=== PATIENT | female | born 1990 | race Caucasian/White ===

== ENCOUNTER 2020-06-29 21:05 | Emergency (ER) | payer OTHER, SELFPAY ==
--- NOTE | ~2020-06-29 | US_ITS ---
EXAMINATION: ULTRASOUND FIRST TRIMESTER CLINICAL INFORMATION: Nausea and vomiting. .. COMPARISON: None. TECHNIQUE: Transabdominal imaging of the pelvis was performed. FINDINGS: A normal gravid uterus is identified. A single living intrauterine gestation is identified with a crown-rump length of 26 mm corresponding to 9 weeks 3 days. This is concordant with the age by dates of 9 weeks 1 days for an RUTH of 01/31/2021. A normal heart rate of 181 beats per minute is identified. Both ovaries are of normal size and echogenicity. The right measures 1.9 x 1.9 x 1.8 cm. The left measures 2.3 x 3.2 x 1.5 cm. There is no pelvic free fluid. US/US OB <= 14 wk fetus add gest IMPRESSION: Normal single living intrauterine gestation with an RUTH of 01/31/2021.
[2020-06-29 21:15] VITALS: BP 124/69; PULSE 122; RESP 18; TEMP 37.2; O2SAT 98; BMI 27.4
[2020-06-29 22:25] VITALS: BP 121/67; PULSE 122; RESP 18; TEMP 37.2; O2SAT 96
[2020-06-29 22:39] LABS: MANUAL DIFF FLAG NO
[2020-06-29 22:41] LABS: Basophils Percent Auto 0.3 % (0-2); Eosinophils Percent Auto 0.1 % (0-4); Hematocrit 39.8 % (37-47); Hemoglobin 13.9 g/dl (12.0-16.0); Imm Gran Abs Auto 0.06 X10*3/uL (0.00-0.03); Imm Gran Pct Auto 0.4 % (0.0-0.4); Lymphocytes Absolute Auto 1.1 X10*3/uL (1.2-4.9); Lymphocytes Percent Auto 7.6 % (20-40); Mean Corpuscular HGB Conc 34.9 g/dl (31.0-35.0); Mean Corpuscular Hemoglobin 30.6 pg (27.0-33.0); Mean Corpuscular Volume 87.7 fL (80-98); Mean Platelet Volume 9.8 fL (9.4-12.3); Monocytes Absolute Auto 0.4 X10*3/uL (0.1-1.2); Neutrophils Absolute Auto 12.6 X10*3/uL (2.0-8.3); Neutrophils Percent Auto 88.6 % (45-73); Platelet Count 388 X10*3/uL (160-400); Red Blood Count 4.54 X10*6/uL (4.20-5.50); Red Cell Distribution Width 11.8 % (11.0-16.0); White Blood Count 14.2 X10*3/uL (4.8-10.8)
[2020-06-29 22:45] LABS: Glucose Urine UA NEG (NEG); Leukocyte Esterase Urine TRACE (NEG); Nitrite Urine NEG (NEG); PH 6.5 (5.0-8.0); Specific Gravity - Urine 1.025 (1.005-1.025); UACC Culture Trigger YES; Urine Blood 2+ (NEG); Urine Ketones >=80 MG/DL (NEG); Urine Protein TRACE MG/DL (NEG-TRACE)
--- NOTE | 2020-06-29 22:46 | ED_ITS ---
HPI - Nausea/Vomiting/Diarrhea General Chief complaint: Nausea/Vomiting/Diarrhea Stated complaint: Vomiting/9 wks Time Seen by Provider: 06/29/20 22:16 Source: patient Mode of arrival: ambulatory History of Present Illness HPI Narrative: This is a 30-year-old female , LMP 12 01/2020 with an EGA: 9 weeks, 1 day who presents with onset of nausea and vomiting since 10:00 a.m. this morning without associated fevers, chills, cough, shortness of breath, chest pain/palpitations, abdominal pain/cramping, diarrhea, urinary pain/bu rning/frequency, vaginal bleeding or discharge. Patient states that she tried multiple different fluids to include Pedialyte without success in keeping anything down. She has not yet had an OB appointment and states that her 1st was uncomplicated, other than having nausea/vomiting during the 1st trimester. Related Data Previous Rx's Medication Instructions Recorded nitrofurantoin monohyd/m-cryst 100 mg PO Q12H 7 Days #14 cap 06/30/20 [Macrobid] pyridoxine (vitamin B6) 25 mg PO TID PRN #14 tab 06/30/20 Allergies Allergy/AdvReac Type Severity Reaction Status Date / Time No Known Drug Allergies Allergy Unknown Unknown Verified 06/29/20 21:27 Review of Systems Review of Systems: Pertinent positives and negatives as stated in HPI 10 point review systems is otherwise negative. PMFSH Past Medical History Source: nursing notes reviewed Medical History No known health problems Social History Social History Advance Directives: No Physical Exam Vital Signs: Vital Signs: Last Vital Signs Temp 99.0 F 06/29/20 22:25 Pulse 109 H 06/30/20 00:00 Resp 16 06/30/20 00:00 BP 113/62 06/30/20 00:00 Pulse Ox 99 06/30/20 00:00 Body Mass Index 27.4 VITAL SIGNS: Reviewed. GENERAL: Well developed, well nourished, in no acute distress. HEAD: Normocephalic/atraumatic, NOSE: Nares patent bilateral OROPHARYNX: no oral lesions noted, posterior pharynx clear NECK: Supple, no adenopathy LUNGS: Normal breath sounds. No adventitious sounds or accessory muscle use. SpO2<> CARDIOVASCULAR: Regular rate and rhythm without noted murmurs, no JVD or lower extremity edema. ABDOMEN: Soft, non-tender, non-distended with bowel sounds. NEUROLOGIC: Alert and oriented x 4. Course Course Course Narrative: This is a 30-year-old female with history and clinical presentation consistent with nauseous and vomiting associated with . Will rule out ectopic, no vaginal bleeding/cramping therefore doubt SAB. Christin ent will receive IV fluids, labs, UA, Ob ultrasound. Review of all investigations patient has a mild leukocytosis with evidence suggesting UTI. She was informed of all results and findings and has had complete resolution of her nausea and vomiting and is tolerating oral intake. She will receive initial antibiotic treatment here and then be discharged with remaining course. MDM - Nausea/Vomiting/Diarrhea Lab Data Result diagrams: 06/29/20 22:35 06/29/20 22:35 Labs: Lab Results 06/29/20 06/29/20 06/29/20 Range/Units 22:35 22:35 22:35 WBC 14.2 H (4.8-10.8) X10*3/uL RBC 4.54 (4.20-5.50) X10*6/uL Hgb 13.9 (12.0-16.0) g/dl Hct 39.8 (37-47) % MCV 87.7 (80-98) fL MCH 30.6 (27.0-33.0) pg MCHC 34.9 (31.0-35.0) g/dl RDW 11.8 (11.0-16.0) % Plt Count 388 (160-400) X10*3/uL MPV 9.8 (9.4-12.3) fL Immature Gran % (Auto) 0.4 (0.0-0.4) % Neut % (Auto) 88.6 H (45-73) % Lymph % (Auto) 7.6 L (20-40) % [place] % (Auto) 3.0 (2-11) % Eos % (Auto) 0.1 (0-4) % Baso % (Auto) 0.3 (0-2) % Lymph # (Auto) 1.1 L (1.2-4.9) X10*3/uL [place] # (Auto) 0.4 (0.1-1.2) X10*3/uL Eos # (Auto) 0.0 (0.0-0.4) X10*3/uL Baso # (Auto) 0.0 (0.0-0.2) X10*3/uL Abs Immat Gran (auto) 0.06 H (0.00-0.03) X10*3/uL Absolute Neuts (auto) 12.6 H (2.0-8.3) X10*3/uL Absolute Nucleated RBC 0.000 (0.0-0.012) X10*3/uL Nucleated RBC % (auto) 0.0 (0.0-0.2) /100WBC Sodium 140 (135-145) mmol/L Potassium 3.6 (3.3-5.1) mmol/L Chloride 106 (96-108) mmol/L Carbon Dioxide 20 L (22-29) mmol/L Anion Gap 18 (12-20) BUN 15 (9-16) mg/dL Creatinine 0.69 (0.5-1.4) mg/dL Estim Creat Clear Calc 109.7 Estimated GFR > 60 Random Glucose 106 (60-115) mg/dL Calcium 9.9 (8.4-10.2) mg/dL Total Bilirubin 0.5 (0.0-1.0) mg/dL AST 16 (5-31) U/L ALT 36 H (0-31) U/L Alkaline Phosphatase 86 (39-117) U/L Total Protein 7.7 (6.5-8.0) g/dL Albumin 4.4 (3.5-5.0) g/dL Beta HCG, Quant 817791 mIU/mL Urine Color DARK YELLOW Urine Appearance CLEAR Urine pH 6.5 (5.0-8.0) Ur Specific [place] 1.025 (1.005-1.025) Urine Protein TRACE (NEG-TRACE) MG/DL Urine Glucose (UA) NEG (NEG) MG/DL Urine Ketones >=80 (NEG) MG/DL Urine Blood 2+ H (NEG) Urine Nitrite NEG (NEG) Ur Leukocyte Esterase TRACE H (NEG) Urine RBC 1-4 (0) /HPF Urine WBC 10-14 H (0-4) /HPF Ur Squamous Epith Cells 2+ /LPF Urine Bacteria TRACE /LPF Urine Mucus 1+ /LPF Urine Test POSITIVE H (NEGATIVE) Discharge Plan Discharge Clinical Impression: UTI (urinary tract infection) Qualifiers: Urinary tract infection type: site unspecified Hematuria presence: without hematuria Qualified Code(s): N39.0 - Urinary tract infection, site not specified Patient Disposition: Home, Self-Care Instructions: Urinary Tract Infection in (ED) Prescriptions: New nitrofurantoin monohyd/m-cryst [Macrobid] 100 mg capsule 100 mg PO Q12H 7 Days Qty: 14 RF: 0 pyridoxine (vitamin B6) 25 mg tablet 25 mg PO TID PRN (Reason: nausea and vomiting) Qty: 14 RF: 0
[2020-06-29 22:49] LABS: Appearance Urine CLEAR; Color Urine DARK YELLOW
[2020-06-29 23:00] LABS: Squamous Epithelial Cell Urine 2+ /LPF
[2020-06-29 23:01] LABS: Bacteria Urine TRACE /LPF; Mucus Urine 1+ /LPF; UPreg QC Valid YES; Urine Pregnancy POSITIVE (NEGATIVE)
[2020-06-29 23:07] LABS: Alanine Aminotransferase 36 U/L (0-31); Albumin Level 4.4 g/dL (3.5-5.0); Alkaline Phosphatase 86 U/L (39-117); Anion Gap 18 (12-20); Aspartate Amino Transferase 16 U/L (5-31); Bilirubin Total 0.5 mg/dL (0.0-1.0); Blood Urea Nitrogen 15 mg/dL (9-16); Calcium 9.9 mg/dL (8.4-10.2); Carbon Dioxide 20 mmol/L (22-29); Chloride 106 mmol/L (96-108); Creatinine Clr Calc Pharmacy 109.7; Estimated Glomerular Filt Rate > 60; Glucose Random 106 mg/dL (60-115); Potassium 3.6 mmol/L (3.3-5.1); Sodium 140 mmol/L (135-145); Total Protein 7.7 g/dL (6.5-8.0)
--- NOTE | 2020-06-29 23:46 | PC.NURSE ---
PATIENT AWAY FOR ULTRASOUND
[2020-06-29] MEDS: 0.9 % Sodium Chloride 1,000 ML 999 ML IV (23:58)
[2020-06-29] MEDS: ondansetron HCL 4 MG/2 ML VIAL IVPUSH (23:58)
[2020-06-30] VITALS: BP 113/62; PULSE 109; RESP 16; O2SAT 99
[2020-06-30 02:00] VITALS: BP 114/60; PULSE 99; RESP 18; O2SAT 99
[2020-06-30] MEDS: Nitrofurantoin Monohyd/M-Cryst 100 MG CAPSULE PO (02:14)
== END 2020-06-30 02:19 | disposition home or self-care (01) ==
PROVIDERS: Emergency Provider Student in an Organized Health Care Education/Training Program
DX: O23.41 Unspecified infection of urinary tract in pregnancy, first trimester (principal); R11.2 Nausea with vomiting, unspecified; Z3A.09 9 weeks gestation of pregnancy; Z79.899 Other long term (current) drug therapy
CPT/HCPCS: 36415; 76802; 80053; 81001; 81003; 81025; 84702; 85025; 87086; 96361; 96374; 99284; J2405

== ENCOUNTER 2020-07-03 17:08 | Emergency (ER) | payer OTHER, SELFPAY ==
[2020-07-03 17:30] VITALS: BP 108/72; PULSE 127; RESP 18; TEMP 36.8; O2SAT 98; BMI 28.3
--- NOTE | 2020-07-03 21:48 | ED_ITS ---
HPI - Nausea/Vomiting/Diarrhea General Chief complaint: Nausea/Vomiting/Diarrhea Stated complaint: Vomiting/9 weeks preg Source: patient Mode of arrival: ambulatory Limitations: no limitations History of Present Illness HPI Narrative: 30-year-old female 9 weeks presents with nausea and vomiting. Patient was seen on 06/30/2020 for similar circumstances and was diagnosed with a urinary tract infection. She has not taken any of her antibiotics because she stated that the nausea and vomiting has not subsided. She does not describe any abdominal pain, cramping, vaginal discharge or bleeding, chest pain or pressure, palpitations, shortness of breath, abdominal distention, or edema. MD elicited complaint: nausea and vomiting Onset (ago): week(s) Description of vomiting: watery and bilious Associated nausea: Yes Associated abdominal pain: No Exacerbating factors: eating Associated symptoms: denies other symptoms Related Data Previous Rx's Medication Instructions Recorded nitrofurantoin monohyd/m-cryst 100 mg PO Q12H 7 Days #14 cap 06/30/20 [Macrobid] pyridoxine (vitamin B6) 25 mg PO TID PRN #14 tab 06/30/20 ondansetron HCl [Zofran] 4 mg PO Q8H PRN #30 tab 07/03/20 Allergies Allergy/AdvReac Type Severity Reaction Status Date / Time No Known Drug Allergies Allergy Unknown Unknown Verified 06/29/20 21:27 Review of Systems Review of Systems: Constitutional: No Fever, No Chills ENT/Mouth: No Ear Pain, No Hoarseness, No sore throat Eyes: No Eye Pain, No Swelling, No Redness, No Foreign Body Cardiovascular: No Chest Pain, No SOB Respiratory: No Cough, No Dyspnea Gastrointestinal: Positive Nausea, positive Vomiting, No Diarrhea, No abdominal Pain Genitourinary: Positive , Positive Dysuria, No Hematuria Musculoskeletal: No joint pain, No Myalgias, No Joint Swelling Skin: No Skin lacerations, No rash Neuro: No Weakness, No Numbness, No Paresthesias, No Loss of Consciousness, No Dizziness, No Headache Psych: No Anxiety/Panic, No Depression Heme/Lymph: no easy bruising, no Lymphadenopathy Endocrine: No Polyuria, No Polydipsia Yes all other systems are reviewed and are negative Gastrointestinal: Gastrointestinal: Reports nausea PMFSH Past Medical History Attestation statement: The following information was validated with the patient. Source: old records reviewed Medical History No known health problems Social History Social History Alcohol intake: never Smoking Status: Never smoker Use of substances other than those prescribed or required for medical reasons: No Advance Directives: No Advance Directives Information Provided: Yes Physical Exam Vital Signs: Vital Signs: Last Vital Signs Temp 99.6 F 07/03/20 21:54 Pulse 112 H 07/03/20 21:54 Resp 16 07/03/20 21:54 BP 134/84 07/03/20 21:54 Pulse Ox 99 07/03/20 21:54 Body Mass Index 28.3 Appearance: Alert. Oriented X3. Mild distress. Eyes: Pupils equal, round and reactive to light. EOMI ENT: Pharynx normal. Cranial nerves 2-12 intact Neck: Normal inspection. Neck supple. CVS: Tachycardic heart rate and rhythm. Pulses normal. Respiratory: No respiratory distress. Breath sounds normal. Abdomen: Soft and nontender. No palpable fundus Skin: Skin warm and dry. Normal skin color. Normal skin turgor. Extremities: No lower extremity edema. Neuro: No motor deficit. No sensory deficit. Course Course Course Narrative: 30-year-old female approximately 9 weeks presents with intractable nausea, vomiting, and a urinary tract infection. She was given antibiotics on 06/30/2020 however she has not started taking them because of nausea and vomiting. Patient is tachycardic, given the history of untreated UTI we will order lactic acid, cultures, repeat urinalysis, CBC and Chem 7. We will resuscitate with 2 L of fluid and give ceftriaxone IV. White count 16.5 which is consistent with UTI and , no other organ dysfunction noted. Lactic acid 1.4 no sepsis this time. Patient strongly advised to take her antibiotics as directed, education provided that there is high risk of demise with untreated UTI. Will give script for Zofran. Patient verbalized understanding of and agrees plan of care discharge home. MDM - Nausea/Vomiting/Diarrhea MDM Narrative Medical decision making narrative: Hyperemesis gravidarum, UTI Differential Diagnosis Differential diagnosis: Likely dehydration Medical Records Attestation: I reviewed the patient's medical records. Lab Data Attestation: I reviewed the patient's lab results. Result diagrams: 07/03/20 21:52 07/03/20 21:52 Labs: Lab Results 07/03/20 07/03/20 07/03/20 Range/Units 21:52 21:52 22:28 WBC 16.5 H (4.8-10.8) X10*3/uL RBC 4.86 (4.20-5.50) X10*6/uL Hgb 14.4 (12.0-16.0) g/dl Hct 42.3 (37-47) % MCV 87.0 (80-98) fL MCH 29.6 (27.0-33.0) pg MCHC 34.0 (31.0-35.0) g/dl RDW 11.8 (11.0-16.0) % Plt Count 403 H (160-400) X10*3/uL MPV 10.1 (9.4-12.3) fL Immature Gran % (Auto) 0.4 (0.0-0.4) % Neut % (Auto) 78.7 H (45-73) % Lymph % (Auto) 14.2 L (20-40) % [place] % (Auto) 5.7 (2-11) % Eos % (Auto) 0.7 (0-4) % Baso % (Auto) 0.3 (0-2) % Lymph # (Auto) 2.3 (1.2-4.9) X10*3/uL [place] # (Auto) 0.9 (0.1-1.2) X10*3/uL Eos # (Auto) 0.1 (0.0-0.4) X10*3/uL Baso # (Auto) 0.1 (0.0-0.2) X10*3/uL Abs Immat Gran (auto) 0.07 H (0.00-0.03) X10*3/uL Absolute Neuts (auto) 13.0 H (2.0-8.3) X10*3/uL Absolute Nucleated RBC 0.000 (0.0-0.012) X10*3/uL Nucleated RBC % (auto) 0.0 (0.0-0.2) /100WBC Sodium 138 (135-145) mmol/L Potassium 4.0 (3.3-5.1) mmol/L Chloride 104 (96-108) mmol/L Carbon Dioxide 18 L (22-29) mmol/L Anion Gap 20 (12-20) BUN 15 (9-16) mg/dL Creatinine 0.65 (0.5-1.4) mg/dL Estim Creat Clear Calc 113.6 Estimated GFR > 60 Random Glucose 87 (60-115) mg/dL Lactic Acid 1.4 (0.5-2.0) mmol/L Calcium 9.8 (8.4-10.2) mg/dL Beta HCG, Quant 832015 mIU/mL Urine Color Urine Appearance Urine pH (5.0-8.0) Ur Specific [place] (1.005-1.025) Urine Protein (NEG-TRACE) MG/DL Urine Glucose (UA) (NEG) MG/DL Urine Ketones (NEG) MG/DL Urine Blood (NEG) Urine Nitrite (NEG) Ur Leukocyte Esterase (NEG) Urine RBC (0) /HPF Urine WBC (0-4) /HPF Ur Squamous Epith Cells /LPF Urine Bacteria /LPF Urine Mucus /LPF 07/03/20 Range/Units 23:03 WBC (4.8-10.8) X10*3/uL RBC (4.20-5.50) X10*6/uL Hgb (12.0-16.0) g/dl Hct (37-47) % MCV (80-98) fL MCH (27.0-33.0) pg MCHC (31.0-35.0) g/dl RDW (11.0-16.0) % Plt Count (160-400) X10*3/uL MPV (9.4-12.3) fL Immature Gran % (Auto) (0.0-0.4) % Neut % (Auto) (45-73) % Lymph % (Auto) (20-40) % [place] % (Auto) (2-11) % Eos % (Auto) (0-4) % Baso % (Auto) (0-2) % Lymph # (Auto) (1.2-4.9) X10*3/uL [place] # (Auto) (0.1-1.2) X10*3/uL Eos # (Auto) (0.0-0.4) X10*3/uL Baso # (Auto) (0.0-0.2) X10*3/uL Abs Immat Gran (auto) (0.00-0.03) X10*3/uL Absolute Neuts (auto) (2.0-8.3) X10*3/uL Absolute Nucleated RBC (0.0-0.012) X10*3/uL Nucleated RBC % (auto) (0.0-0.2) /100WBC Sodium (135-145) mmol/L Potassium (3.3-5.1) mmol/L Chloride (96-108) mmol/L Carbon Dioxide (22-29) mmol/L Anion Gap (12-20) BUN (9-16) mg/dL Creatinine (0.5-1.4) mg/dL Estim Creat Clear Calc Estimated GFR Random Glucose (60-115) mg/dL Lactic Acid (0.5-2.0) mmol/L Calcium (8.4-10.2) mg/dL Beta HCG, Quant mIU/mL Urine Color DARK YELLOW Urine Appearance HAZY Urine pH 6.5 (5.0-8.0) Ur Specific [place] 1.020 (1.005-1.025) Urine Protein 1+ H (NEG-TRACE) MG/DL Urine Glucose (UA) NEG (NEG) MG/DL Urine Ketones >=80 (NEG) MG/DL Urine Blood 1+ H (NEG) Urine Nitrite NEG (NEG) Ur Leukocyte Esterase 2+ H (NEG) Urine RBC 5-9 H (0) /HPF Urine WBC 10-14 H (0-4) /HPF Ur Squamous Epith Cells 3+ /LPF Urine Bacteria 1+ /LPF Urine Mucus 2+ /LPF ECG Data Attestation: I personally reviewed and interpreted this ECG as follows: ECG interpretation date: 07/03/20 ECG interpretation time: 22:09 Prior ECG tracings: not available for review Interpretation: Vent. rate 110 BPM WA interval 114 ms QRS duration 88 ms QT/QTc 346/468 ms P-R-T axes 42 44 8 Sinus tachycardia Otherwise normal ECG No p revious ECGs available Discharge Plan Discharge Clinical Impression: Hyperemesis gravidarum before end of 22 week gestation with carbohydrate depletion, UTI (urinary tract infection) Patient Disposition: Home, Self-Care Instructions: Hyperemesis Gravidarum (ED), Urinary Tract Infection in (ED) Additional Instructions: You were evaluated for nausea and vomiting associated with . Please use Zofran as needed for nauseousness. You were evaluated on June 29, 2020 and diagnosed with a urinary tract infection. You were prescribed antibiotic Macrobid and Pyridium at that time, please take those medications for urinary tract infection and symptoms. Thank you for choosing this emergency department for evaluation. Please follow-up with primary care physician as needed. Return to the emergency department for any new, concerning, or worsening symptoms. Prescriptions: New ondansetron HCl [Zofran] 4 mg tablet 4 mg PO Q8H PRN (Reason: nausea and vomiting) Qty: 30 RF: 0 No Action nitrofurantoin monohyd/m-cryst [Macrobid] 100 mg capsule 100 mg PO Q12H 7 Days Qty: 14 RF: 0 pyridoxine (vitamin B6) 25 mg tablet 25 mg PO TID PRN (Reason: nausea and vomiting) Qty: 14 RF: 0 Interventions: ED Discharge Assessment Last Done: 07/03/20 23:45 Discharge Date/Time: 07/03/20 23:54
[2020-07-03] MEDS: 0.9 % Sodium Chloride 1,000 ML 999 ML IV (21:53)
[2020-07-03 21:54] VITALS: BP 134/84; PULSE 112; RESP 16; TEMP 37.6; O2SAT 99
--- NOTE | 2020-07-03 21:54 | ECG_ITS ---
Test Reason : TACHYCARDIA Blood Pressure : / mmHG Vent. Rate : 110 BPM Atrial Rate : 110 BPM P-R Int : 114 ms QRS Dur : 088 ms QT Int : 346 ms P-R-T Axes : 042 044 008 degrees QTc Int : 468 ms Sinus tachycardia Otherwise normal ECG No previous ECGs available Referred By: Marion Bianchi Electronically Signed By:Jose Galvan
[2020-07-03] MEDS: diphenhydrAMINE HCL 50 MG/ML VIAL 25 MG IVPUSH (22:04)
[2020-07-03] MEDS: Metoclopramide HCl 10 MG/2 ML VIAL IVPUSH (22:04)
--- NOTE | 2020-07-03 22:17 | PC.NURSE ---
Pt reports not being able to tolerate po antibitiocs for UTI- pt denies fever or chills at home. Denies vaginal bleeding or unusual discharge. Denies abd cramping or pain.
[2020-07-03 22:18] LABS: Basophils Absolute Auto 0.1 X10*3/uL (0.0-0.2); Basophils Percent Auto 0.3 % (0-2); Eosinophils Absolute Auto 0.1 X10*3/uL (0.0-0.4); Eosinophils Percent Auto 0.7 % (0-4); Hematocrit 42.3 % (37-47); Hemoglobin 14.4 g/dl (12.0-16.0); Imm Gran Abs Auto 0.07 X10*3/uL (0.00-0.03); Imm Gran Pct Auto 0.4 % (0.0-0.4); Lymphocytes Absolute Auto 2.3 X10*3/uL (1.2-4.9); Lymphocytes Percent Auto 14.2 % (20-40); MANUAL DIFF FLAG NO; Mean Corpuscular Hemoglobin 29.6 pg (27.0-33.0); Mean Platelet Volume 10.1 fL (9.4-12.3); Monocytes Absolute Auto 0.9 X10*3/uL (0.1-1.2); Monocytes Percent Auto 5.7 % (2-11); Neutrophils Percent Auto 78.7 % (45-73); Platelet Count 403 X10*3/uL (160-400); Red Blood Count 4.86 X10*6/uL (4.20-5.50); Red Cell Distribution Width 11.8 % (11.0-16.0); White Blood Count 16.5 X10*3/uL (4.8-10.8)
--- NOTE | 2020-07-03 22:36 | PC.NURSE ---
verified chem is received and pending at this time.
[2020-07-03 22:50] LABS: Anion Gap 20 (12-20); Blood Urea Nitrogen 15 mg/dL (9-16); Calcium 9.8 mg/dL (8.4-10.2); Carbon Dioxide 18 mmol/L (22-29); Chloride 104 mmol/L (96-108); Creatinine Clr Calc Pharmacy 113.6; Estimated Glomerular Filt Rate > 60; Glucose Random 87 mg/dL (60-115); Sodium 138 mmol/L (135-145)
[2020-07-03 22:55] LABS: Lactic Acid 1.4 mmol/L (0.5-2.0)
[2020-07-03] MEDS: cefTRIAXone sodium 1 GM in 0.9 % Sodium Chloride 50 ML IV (23:00)
[2020-07-03] MEDS: 0.9 % Sodium Chloride 1,000 ML 999 ML IVCONT (23:00)
--- NOTE | 2020-07-03 23:00 | PC.NURSE ---
Pt reports s/p medication decreased nausea
[2020-07-03 23:08] LABS: Color Urine DARK YELLOW; Glucose Urine UA NEG (NEG); Leukocyte Esterase Urine 2+ (NEG); Nitrite Urine NEG (NEG); PH 6.5 (5.0-8.0); UACC Culture Trigger YES; Urine Blood 1+ (NEG); Urine Ketones >=80 MG/DL (NEG); Urine Protein 1+ MG/DL (NEG-TRACE)
[2020-07-03 23:09] LABS: Appearance Urine HAZY
[2020-07-03 23:19] LABS: Bacteria Urine 1+ /LPF; Mucus Urine 2+ /LPF; Squamous Epithelial Cell Urine 3+ /LPF
== END 2020-07-03 23:54 | disposition home or self-care (01) ==
PROVIDERS: Nurse Practitioner Family; Emergency Provider Internal Medicine
DX: O21.1 Hyperemesis gravidarum with metabolic disturbance (principal); O23.41 Unspecified infection of urinary tract in pregnancy, first trimester; Z3A.09 9 weeks gestation of pregnancy
CPT/HCPCS: 36415; 80048; 81001; 81003; 83605; 84702; 85025; 87040; 87086; 93005; 96361; 96365; 96375; 99284; J0696; J1200; J2765

== ENCOUNTER 2020-07-23 13:11 | Emergency (ER) | payer OTHER, SELFPAY ==
--- NOTE | ~2020-07-23 | US_ITS ---
EXAMINATION: US OBSTETRICAL ULTRASOUND CLINICAL INFORMATION: Pain. Positive . COMPARISON: Baseline 06/29/2020. LMP: 05/06/2020. Gestational age by maternal dates is 12 weeks 4 days. Estimated date of delivery by maternal dates is 01/21/2021. TECHNIQUE: Transabdominal examination FINDINGS: There is a single intrauterine gestational sac with visible yolk sac, embryo/fetus, and cardiac activity. There is no significant subchorionic hemorrhage or hematoma. HR: 170 beats per minute. CRL (crown rump length): 6.94 cm (13 weeks 2 days +/- 4 days). RUTH (estimated date of delivery): 01/26/2021 +/- 4 days. MATERNAL ADNEXA: The right maternal ovary measures 2.5 x 1.1 x 1 cm. Within normal limits The left maternal ovary measures 2.6 x 1.6 x 3.2 cm. Within normal limits There is no significant maternal adnexal mass. No maternal pelvic ascites. There is mild fullness of the right renal collecting system which is nonspecific. Placenta appears normal. US/US OB <= 14 weeks fetus IMPRESSION: 1. Single intrauterine gestation with ultrasound gestational age of 13 weeks 2 days +/- 4 days. 2. Estimated date of delivery is 01/26/2021 +/- 4 days. 3. No maternal adnexal mass or pelvic ascites. 4. Mild pelvic caliectasis right collecting system. No stones demonstrated.
[2020-07-23 14:12] VITALS: BP 124/77; PULSE 126; RESP 20; TEMP 36.8; O2SAT 97; BMI 27.6
--- NOTE | 2020-07-23 14:30 | ED.ABDPAIN ---
HPI - Abdominal Pain General Chief Complaint: Abdominal Pain Stated Complaint: ABD PAIN VOMITING 4 WKS PREG Time Seen by Provider: 07/23/20 14:19 Source: patient Mode of arrival: ambulatory Limitations: no limitations History of Present Illness HPI narrative: 30 y/o female who is 12 weeks presenting with acute onset of lower abdominal cramping along with nausea and vomiting that started yesterday afternoon. She had her 1st trimester U/S and screening done last Friday which she reports was normal. She was in her usual state of health until yesterday. She has not had N/V since very early on in her . She also reports constipation and has not had a bowel movement in several days. She has not been able to keep food down since yesterday. She reports the pain is cramping in nature and is in her lower abdomen and radiates to bilateral sides. She denies vaginal bleeding, vaginal discharge, dysuria, RUQ pain, fever, chills. No sick contacts. MD elicited complaint: abdominal pain Pertinent past history: other () Onset (ago): day(s) (1) Pain Consistency: intermittent Location: suprapubic Severity: severe Quality: cramping Radiation: LLQ, RLQ, L flank and R flank Migration to: no migration Exacerbating factors: eating Relieving factors: nothing Associated symptoms: nausea, vomiting and constipation Related Data Previous Rx's Medication Instructions Recorded nitrofurantoin monohyd/m-cryst 100 mg PO Q12H 7 Days #14 cap 06/30/20 [Macrobid] pyridoxine (vitamin B6) 25 mg PO TID PRN #14 tab 06/30/20 ondansetron HCl [Zofran] 4 mg PO Q8H PRN #30 tab 07/03/20 cefuroxime axetil 250 mg PO BID 7 Days #14 tab 07/23/20 ondansetron HCl [Zofran] 4 mg PO Q8H PRN #10 tab 07/23/20 Allergies Allergy/AdvReac Type Severity Reaction Status Date / Time No Known Drug Allergies Allergy Unknown Unknown Verified 06/29/20 21:27 Review of Systems Review of Systems Constitutional: No Fever, No Chills ENT/Mouth: No sore throat, No Rhinorrhea, No Swallowing Difficulty Cardiovascular: No Chest Pain, No SOB Respiratory: No Cough, No Sputum Gastrointestinal: No Nausea, No Vomiting, No Diarrhea, No abdominal Pain Genitourinary: No Dysuria, No Urinary Frequency, No Hematuria, No vaginal bleeding Musculoskeletal: No joint pain, No Myalgias Skin: No Skin Lesions, No rash Neuro: No Weakness, No Numbness, No Dizziness, No Headache Psych: + Anxiety/Panic Heme/Lymph: No Bruising, No Lymphadenopathy Endocrine: No Polyuria, No Polydipsia Physical Exam Vital Signs: Vital Signs: Last Vital Signs Temp 98.7 F 07/23/20 19:24 Pulse 100 07/23/20 19:24 Resp 18 07/23/20 19:24 BP 112/45 L 07/23/20 19:24 Pulse Ox 99 07/23/20 19:24 Body Mass Index 27.6 Appearance: Alert. Oriented X3. No acute distress. Eyes: Pupils equal, round and reactive to light. ENT: Pharynx normal. Neck: Normal inspection. Neck supple. CVS: Tachycardic, regular rhythm. Pulses normal. Respiratory: No respiratory distress. Breath sounds normal. Abdomen: Softly distended, mild diffuse tenderness, more in the lower abdomen. +BS x4 Skin: Skin warm and dry. Normal skin color. Normal skin turgor. No rashes. Extremities: No lower extremity edema. Neuro: Oriented X 3. No motor deficit. No sensory deficit. Course Course Course Narrative: 30 y/o female G21 presenting with acute onset of lower abdominal cramping and nausea and vomiting that started yesterday. Had recent 12 week ultrasound that was reportedly normal. Given pain will repeat ultrasound. Differential diagnosis includes but not limited to constipation, bowel obstruction, UTI, related N/V, diverticulitis, appendicitis, cholecystitis. Will get lab workup and give IVF and Zofran now. Dispo pending results and improvement. Reevaluation(s) Reevaluation #1: WBC 16K which is the same as when she was here on 07/03 and presenting with vomiting. Likely etiology of leukocytosis at this time as well. She is newly slightly anemic without signs of bleeding, likely related. This will need to be monitored during her . Pelvic U/S is normal. UA still pending. Nausea improved. Abdominal pain improved. Reevaluation #2: UA + for UTI. Will give dose of [place] here prior to discharge home. She is feeling better. Results were discussed with the patient and she will follow up with her OB this week. MDM - Abdominal Pain Lab Data Result diagrams: 07/23/20 14:36 07/23/20 14:36 Labs: Lab Results 07/23/20 07/23/20 07/23/20 Range/Units 14:36 14:36 14:36 WBC 16.2 H (4.8-10.8) X10*3/uL RBC 3.95 L (4.20-5.50) X10*6/uL Hgb 11.9 L (12.0-16.0) g/dl Hct 34.9 L (37-47) % MCV 88.4 (80-98) fL MCH 30.1 (27.0-33.0) pg MCHC 34.1 (31.0-35.0) g/dl RDW 12.5 (11.0-16.0) % Plt Count 363 (160-400) X10*3/uL MPV 9.3 L (9.4-12.3) fL Immature Gran % (Auto) 0.8 H (0.0-0.4) % Neut % (Auto) 85.8 H (45-73) % Lymph % (Auto) 9.0 L (20-40) % [place] % (Auto) 4.1 (2-11) % Eos % (Auto) 0.1 (0-4) % Baso % (Auto) 0.2 (0-2) % Lymph # (Auto) 1.5 (1.2-4.9) X10*3/uL [place] # (Auto) 0.7 (0.1-1.2) X10*3/uL Eos # (Auto) 0.0 (0.0-0.4) X10*3/uL Baso # (Auto) 0.0 (0.0-0.2) X10*3/uL Abs Immat Gran (auto) 0.13 H (0.00-0.03) X10*3/uL Absolute Neuts (auto) 13.9 H (2.0-8.3) X10*3/uL Absolute Nucleated RBC 0.000 (0.0-0.012) X10*3/uL Nucleated RBC % (auto) 0.0 (0.0-0.2) /100WBC Hold Blue Top SEE NOTE Sodium 139 (135-145) mmol/L Potassium 3.8 (3.3-5.1) mmol/L Chloride 105 (96-108) mmol/L Carbon Dioxide 22 (22-29) mmol/L Anion Gap 16 (12-20) BUN 15 (9-16) mg/dL Creatinine 0.66 (0.5-1.4) mg/dL Estim Creat Clear Calc 110.5 Estimated GFR > 60 Random Glucose 103 (60-115) mg/dL Calcium 9.4 (8.4-10.2) mg/dL Magnesium 1.9 (1.6-2.6) mg/dL Total Bilirubin 0.4 (0.0-1.0) mg/dL Direct Bilirubin 0.2 (0.0-0.5) mg/dL AST 16 (5-31) U/L ALT 24 (0-31) U/L Alkaline Phosphatase 82 (39-117) U/L Total Protein 6.8 (6.5-8.0) g/dL Albumin 3.8 (3.5-5.0) g/dL Urine Color Urine Appearance Urine pH (5.0-8.0) Ur Specific [place] (1.005-1.025) Urine Protein (NEG-TRACE) MG/DL Urine Glucose (UA) (NEG) MG/DL Urine Ketones (NEG) MG/DL Urine Blood (NEG) Urine Nitrite (NEG) Ur Leukocyte Esterase (NEG) Urine RBC (0) /HPF Urine WBC (0-4) /HPF Ur Squamous Epith Cells /LPF Urine Bacteria /LPF Urine Test (NEGATIVE) Blood Type Antibody Screen 07/23/20 07/23/20 07/23/20 Range/Units 15:56 17:47 17:47 WBC (4.8-10.8) X10*3/uL RBC (4.20-5.50) X10*6/uL Hgb (12.0-16.0) g/dl Hct (37-47) % MCV (80-98) fL MCH (27.0-33.0) pg MCHC (31.0-35.0) g/dl RDW (11.0-16.0) % Plt Count (160-400) X10*3/uL MPV (9.4-12.3) fL Immature Gran % (Auto) (0.0-0.4) % Neut % (Auto) (45-73) % Lymph % (Auto) (20-40) % [place] % (Auto) (2-11) % Eos % (Auto) (0-4) % Baso % (Auto) (0-2) % Lymph # (Auto) (1.2-4.9) X10*3/uL [place] # (Auto) (0.1-1.2) X10*3/uL Eos # (Auto) (0.0-0.4) X10*3/uL Baso # (Auto) (0.0-0.2) X10*3/uL Abs Immat Gran (auto) (0.00-0.03) X10*3/uL Absolute Neuts (auto) (2.0-8.3) X10*3/uL Absolute Nucleated RBC (0.0-0.012) X10*3/uL Nucleated RBC % (auto) (0.0-0.2) /100WBC Hold Blue Top Sodium (135-145) mmol/L Potassium (3.3-5.1) mmol/L Chloride (96-108) mmol/L Carbon Dioxide (22-29) mmol/L Anion Gap (12-20) BUN (9-16) mg/dL Creatinine (0.5-1.4) mg/dL Estim Creat Clear Calc Estimated GFR Random Glucose (60-115) mg/dL Calcium (8.4-10.2) mg/dL Magnesium (1.6-2.6) mg/dL Total Bilirubin (0.0-1.0) mg/dL Direct Bilirubin (0.0-0.5) mg/dL AST (5-31) U/L ALT (0-31) U/L Alkaline Phosphatase (39-117) U/L Total Protein (6.5-8.0) g/dL Albumin (3.5-5.0) g/dL Urine Color YELLOW Urine Appearance CLEAR Urine pH 8.0 (5.0-8.0) Ur Specific [place] 1.015 (1.005-1.025) Urine Protein NEG (NEG-TRACE) MG/DL Urine Glucose (UA) NEG (NEG) MG/DL Urine Ketones 40 (NEG) MG/DL Urine Blood 2+ H (NEG) Urine Nitrite NEG (NEG) Ur Leukocyte Esterase 3+ H (NEG) Urine RBC 30-49 H (0) /HPF Urine WBC 15-29 H (0-4) /HPF Ur Squamous Epith Cells 3+ /LPF Urine Bacteria 2+ /LPF Urine Test POSITIVE H (NEGATIVE) Blood Type O Positive Antibody Screen NEGATIVE Discharge Plan Discharge Clinical Impression: UTI (urinary tract infection) Qualifiers: Urinary tract infection type: acute cystitis Hematuria presence: with hematuria Qualified Code(s): N30.01 - Acute cystitis with hematuria Anemia Qualifiers: Anemia type: unspecified type Qualified Code(s): D64.9 - Anemia, unspecified Patient Disposition: Home, Self-Care Instructions: Anemia (ED), Urinary Tract Infection in (ED) Additional Instructions: Your ultrasound today was normal. Your urine test showed evidence on infection - you were given 1 dose of IV antibiotics while in the ER. Start taking the prescribed antibiotic for UTI starting tomorrow morning. Take the prescribed nausea medication as needed. Follow up with your reamer hand this week. If you have worsening symptoms, including recurrence of pain come back to the ER right away for further evaluation. Prescriptions: New ondansetron HCl [Zofran] 4 mg tablet 4 mg PO Q8H PRN (Reason: nausea and vomiting) Qty: 10 RF: 0 cefuroxime axetil 250 mg tablet 250 mg PO BID 7 Days Qty: 14 RF: 0 No Action nitrofurantoin monohyd/m-cryst [Macrobid] 100 mg capsule 100 mg PO Q12H 7 Days Qty: 14 RF: 0 pyridoxine (vitamin B6) 25 mg tablet 25 mg PO TID PRN (Reason: nausea and vomiting) Qty: 14 RF: 0 ondansetron HCl [Zofran] 4 mg tablet 4 mg PO Q8H PRN (Reason: nausea and vomiting) Qty: 30 RF: 0 Interventions: ED Discharge Assessment Last Done: 07/23/20 19:47 Discharge Date/Time: 07/23/20 19:49 [facility] Past Medical History Attestation statement: The following information was validated with the patient. Medical History No known health problems : 2 Para: 1 Total number of abortions (spontaneous and elective): 0 Social History Social History Alcohol intake: never Smoking Status: Never smoker Use of substances other than those prescribed or required for medical reasons: No Advance Directives: No Advance Directives Information Provided: No
[2020-07-23 14:40] LABS: MANUAL DIFF FLAG NO
[2020-07-23 14:41] LABS: Basophils Percent Auto 0.2 % (0-2); Eosinophils Percent Auto 0.1 % (0-4); Hematocrit 34.9 % (37-47); Hemoglobin 11.9 g/dl (12.0-16.0); Imm Gran Abs Auto 0.13 X10*3/uL (0.00-0.03); Imm Gran Pct Auto 0.8 % (0.0-0.4); Lymphocytes Absolute Auto 1.5 X10*3/uL (1.2-4.9); Mean Corpuscular HGB Conc 34.1 g/dl (31.0-35.0); Mean Corpuscular Hemoglobin 30.1 pg (27.0-33.0); Mean Corpuscular Volume 88.4 fL (80-98); Mean Platelet Volume 9.3 fL (9.4-12.3); Monocytes Absolute Auto 0.7 X10*3/uL (0.1-1.2); Monocytes Percent Auto 4.1 % (2-11); Neutrophils Absolute Auto 13.9 X10*3/uL (2.0-8.3); Neutrophils Percent Auto 85.8 % (45-73); Platelet Count 363 X10*3/uL (160-400); Red Blood Count 3.95 X10*6/uL (4.20-5.50); Red Cell Distribution Width 12.5 % (11.0-16.0); White Blood Count 16.2 X10*3/uL (4.8-10.8)
[2020-07-23] MEDS: bisacodyL 10 MG SUPP.RECT PR (14:45)
[2020-07-23] MEDS: ondansetron HCL 4 MG/2 ML VIAL IVPUSH (14:45)
[2020-07-23] MEDS: 0.9 % Sodium Chloride 1,000 ML 999 ML IVCONT (14:46)
[2020-07-23 15:05] LABS: Alanine Aminotransferase 24 U/L (0-31); Albumin Level 3.8 g/dL (3.5-5.0); Alkaline Phosphatase 82 U/L (39-117); Anion Gap 16 (12-20); Aspartate Amino Transferase 16 U/L (5-31); Bilirubin Direct 0.2 mg/dL (0.0-0.5); Bilirubin Total 0.4 mg/dL (0.0-1.0); Blood Urea Nitrogen 15 mg/dL (9-16); Calcium 9.4 mg/dL (8.4-10.2); Carbon Dioxide 22 mmol/L (22-29); Chloride 105 mmol/L (96-108); Creatinine Clr Calc Pharmacy 110.5; Estimated Glomerular Filt Rate > 60; Glucose Random 103 mg/dL (60-115); Magnesium 1.9 mg/dL (1.6-2.6); Potassium 3.8 mmol/L (3.3-5.1); Sodium 139 mmol/L (135-145); Total Protein 6.8 g/dL (6.5-8.0)
[2020-07-23 17:32] VITALS: BP 108/54; PULSE 111; RESP 18; TEMP 37.2; O2SAT 98
[2020-07-23 18:27] LABS: Glucose Urine UA NEG (NEG); Leukocyte Esterase Urine 3+ (NEG); Nitrite Urine NEG (NEG); Specific Gravity - Urine 1.015 (1.005-1.025); UACC Culture Trigger YES; Urine Blood 2+ (NEG); Urine Ketones 40 MG/DL (NEG); Urine Protein NEG (NEG-TRACE)
[2020-07-23 18:28] LABS: Appearance Urine CLEAR; Color Urine YELLOW
[2020-07-23 18:29] LABS: UPreg QC Valid YES; Urine Pregnancy POSITIVE (NEGATIVE)
[2020-07-23 18:33] LABS: RBC Urine 30-49 /HPF (0)
[2020-07-23 18:34] LABS: Bacteria Urine 2+ /LPF; Squamous Epithelial Cell Urine 3+ /LPF
[2020-07-23 19:02] VITALS: BP 106/61; PULSE 98; RESP 16; O2SAT 98
[2020-07-23] MEDS: cefTRIAXone sodium 1 GM in 0.9 % Sodium Chloride 50 ML IV (19:03)
--- NOTE | 2020-07-23 19:06 | PC.NURSE ---
Report taken from radha Holm RN resuming care. Pt resting in bed, VSS, medicated per JUL. Aware of plan to DC home. Continue to monitor.
[2020-07-23 19:24] VITALS: BP 112/45; PULSE 100; RESP 18; TEMP 37.1; O2SAT 99
== END 2020-07-23 19:49 | disposition home or self-care (01) ==
PROVIDERS: Physician Assistant; Emergency Provider Emergency Medicine
DX: O21.9 Vomiting of pregnancy, unspecified (principal); O23.11 Infections of bladder in pregnancy, first trimester; N30.01 Acute cystitis with hematuria; Z3A.13 13 weeks gestation of pregnancy
CPT/HCPCS: 36415; 76801; 80048; 80076; 81001; 81003; 81025; 83735; 85025; 86850; 86900; 87086; 96361; 96365; 96374; 99284; J0696; J2405

== ENCOUNTER 2022-11-08 12:21 | Emergency (ER) | payer OTHER, SELFPAY ==
[2022-11-08 12:26] VITALS: BP 115/72; PULSE 86; O2SAT 99
--- NOTE | 2022-11-08 12:26 | ED_ITS ---
HPI - General Adult General Chief complaint: Nausea/Vomiting/Diarrhea Stated complaint: flu-like symptoms, vomiting Time Seen by Provider: 11/08/22 15:44 Source: patient Mode of arrival: ambulatory Limitations: no limitations History of Present Illness HPI narrative: 32-year-old female with no known medical history, no abdominal surgical history who presents the ER with complaints of nausea and vomiting for the last 24 hours with 1 episode of diarrhea. Emesis and diarrhea are nonbloody. + bile in emesis. Patient complaining of diffuse abdominal pain. No reports of URI symptoms, fevers or chills. No sick contact, recent travel, antibiotic use. Related Data Previous Rx's Medication Instructions Recorded nitrofurantoin 100 mg PO Q12H 7 days #14 caps 06/30/20 monohydrate/macrocrystals 100 mg capsule (Macrobid) pyridoxine (vitamin B6) 25 mg 25 mg PO TID PRN nausea and 06/30/20 tablet vomiting #14 tabs ondansetron HCl 4 mg tablet 4 mg PO Q8H PRN nausea and 07/03/20 (Zofran) vomiting #30 tabs cefuroxime axetil 250 mg tablet 250 mg PO BID 7 days #14 tabs 07/23/20 ondansetron HCl 4 mg tablet 4 mg PO Q8H PRN nausea and 07/23/20 (Zofran) vomiting #10 tabs ondansetron 4 mg disintegrating 4 mg PO Q6H PRN nausea and 11/08/22 tablet vomiting #15 tabs Allergies Allergy/AdvReac Type Severity Reaction Status Date / Time No Known Drug Allergies Allergy Unknown Unknown Verified 11/08/22 12:36 Review of Systems Review of Systems: Yes all other systems are reviewed and are negative Constitutional: Constitutional: Reports no additional constitutional comp laints, Denies body ache(s), Denies chills, Denies fever(s), Denies headache(s) and Denies weakness Eyes: Eyes: Reports no additional eye complaints and Denies change in vision ENT: Reports system reviewed and no additional complaints, except as documented, Denies dizziness, Denies headache(s), Denies nasal congestion, Denies nasal discharge and Denies neck pain Cardiovascular: Cardiovascular: Reports no additional cardiovascular complaints, Denies chest pain, Denies leg edema and Denies dyspnea Respiratory: Respiratory: Reports no additional respiratory complaints, Denies cough and Denies dyspnea Gastrointestinal: Gastrointestinal: Reports no additional gastrointestinal complaints, Reports abdominal pain, Reports diarrhea, Denies nausea and Reports vomiting Genitourinary: Genitourinary: Reports no additional female genitourinary complaints and Denies urinary incontinence Musculoskeletal: Musculoskeletal: Reports no additional musculoskeletal complaints, Denies back pain, Denies arthralgias, Denies joint swelling, Denies neck pain, Denies numbness and Denies tingling Integumentary/Breasts: Skin/Breast: Reports system reviewed and no additional complaints, except as docu and Denies rash Neurologic: Reports system reviewed and no additional complaints, except as documented, Denies dizziness, Denies headache(s), Denies numbness, Denies tingling and Denies weakness PMFSH Past Medical History Attestation statement: The following information was validated with the patient. Source: old records reviewed and nursing notes reviewed Medical History No known health problems Social History Social History Alcohol intake: never Smoked in Last 30 Days: Yes Use of substances other than those prescribed or required for medical reasons: Yes Substance Use Type: Marijuana Advance Directives: No Advance Directives Information Provided: No Physical Exam ED Vital Signs: Vital Signs - 24 hr 11/08/22 12:27 11/08/22 15:54 11/08/22 17:46 Temperature 97.8 F 98.7 F 98.9 F Pulse Rate 95 86 Respiratory Rate 24 H 16 Blood Pressure 125/64 135/87 Pulse Oximetry 98 100 Oxygen Delivery Method Room Air Room Air 11/08/22 18:00 Temperature 99.2 F Pulse Rate 94 Respiratory Rate 16 Blood Pressure 100/44 L Pulse Oximetry 100 Oxygen Delivery Method Room Air BMI result Body Mass Index 28.3 Const General: cooperative, healthy appearing, comfortable and no acute distress Orientation/consciousness: patient oriented x3 Limitations: no limitations HENMT Head: Yes normal to inspection Ears: hearing grossly normal bilaterally Neuro General: patient oriented x3 Course Course Course Narrative: RME performed by Elzbieta Montoya PA-C. Patient is a 32 year old assigned female at presenting to the emergency department with nausea and vomiting. Labs ordered. Patient placed back in the waiting room pending room availability and results. Reevaluation(s) Reevaluation #1: Labs show a mild leukocytosis from her baseline. Otherwise unremarkable. COVID screen is negative. UA is unremarkable. Patient is feeling improved. She has fluids infusing. Will attempt p.o. trial with fluids are done. Likely viral gastroenteritis. Low concern for acute abdominal pathology. Reevaluation #2: 1900-Sign out to Elzbieta VÁZQUEZ pending PO trial and dispositin Reevaluation #3: Patient passed PO challenge and feels significantly better. Patient cleared for discharge. Time: 19:30 Medications Administered Discontinued Medications Generic Name Dose Route Start Last Admin Trade Name Freq PRN Reason Stop Dose Admin Famotidine 20 mg 11/08/22 17:45 11/08/22 17:54 Famotidine/Pf 20 Mg/2 Ml Vial IVPUSH 11/08/22 17:46 20 mg ONCE ONE Administration Sodium Chloride 1,000 mls @ 999 mls/hr 11/08/22 16:01 11/08/22 18:26 Ns IV 11/08/22 17:01 Infused .Q1H1M STA Infusion Sodium Chloride 1,000 mls @ 999 mls/hr 11/08/22 18:23 11/08/22 18:27 Ns IV 11/08/22 19:23 999 mls/hr .Q1H1M STA Administration Morphine Sulfate 2 mg 11/08/22 17:45 11/08/22 17:53 Morphine Sulfate 2 Mg/Ml Cartridge IVPUSH 11/08/22 17:46 2 mg ONCE ONE Administration Protocol Ondansetron HCl 4 mg 11/08/22 16:01 11/08/22 16:17 Ondansetron Hcl 4 Mg/2 Ml Vial IVPUSH 11/08/22 16:02 4 mg ONCE ONE Administration Ondansetron HCl 4 mg 11/08/22 17:45 11/08/22 17:52 Ondansetron Hcl 4 Mg/2 Ml Vial IVPUSH 11/08/22 17:46 4 mg ONCE ONE Administration Medical Decision Making Medical Decision Making [facility] Narrative: 32-year-old female here with complaints of nausea, vomiting, diarrhea (x1), and generalized abdominal pain x 24 hrs. On exam patient actively vomiting. She does have tenderness to palpation to the entire abdomen no rebound or guarding. Will obtain labs, UA, urine . Will give patient PIV with IV fluids antiemetic and reassess Differential Diagnosis Differential Diagnoses: The differential diagnosis associated with the presentation includes C diff colitis, gastroenteritis, infectious diarrhea, SBO, divert -Only one episode of diarrhea with no risk factors for infectious diarrhea/cdiff so less likely Low concern for acute abdominal pathology (no surgical history, no focal tenderness, improving exam) Lab Data MDM Lab Attestation statement: I reviewed the patient's lab results. 11/08/22 12:36 11/08/22 12:36 Labs: Lab Results 11/08/22 11/08/22 11/08/22 Range/Units 12:36 12:36 12:36 WBC 18.0 H (4.8-10.8) X10*3/uL RBC 4.61 (4.20-5.50) X10*6/uL Hgb 13.9 (12.0-16.0) g/dl Hct 40.5 (37.0-47.0) % MCV 87.9 (80.0-98.0) fL MCH 30.2 (27.0-33.0) pg MCHC 34.3 (31.0-35.0) g/dl RDW 12.9 (11.0-16.0) % Plt Count 469 H (160-400) X10*3/uL MPV 10.2 (9.4-12.3) fL Immature Gran % (Auto) 0.5 H (0.0-0.4) % Neut % (Auto) 92.7 H (45-73) % Lymph % (Auto) 4.9 L (20-40) % [place] % (Auto) 1.6 L (2-11) % Eos % (Auto) 0.1 (0-4) % Baso % (Auto) 0.2 (0-2) % Lymph # (Auto) 0.9 L (1.2-4.9) X10*3/uL [place] # (Auto) 0.3 (0.1-1.2) X10*3/uL Eos # (Auto) 0.0 (0.0-0.4) X10*3/uL Baso # (Auto) 0.0 (0.0-0.2) X10*3/uL Abs Immat Gran (auto) 0.09 H (0.00-0.03) X10*3/uL Absolute Neuts (auto) 16.7 H (2.0-8.3) x10*3/uL Absolute Nucleated RBC 0.000 (0.0-0.012) X10*3/uL Nucleated RBC % (auto) 0.0 (0.0-0.2) /100WBC Smear Tech's Comments VERIFIED Sodium 139 (135-145) mmol/L Potassium 3.8 (3.3-5.1) mmol/L Chloride 106 (96-108) mmol/L Carbon Dioxide 19 L (22-29) mmol/L Anion Gap 18 (12-20) BUN 19 H (9-16) mg/dL Creatinine 0.75 (0.5-1.4) mg/dL Estim Creat Clear Calc 96.7 Estimated GFR > 60 Random Glucose 140 H (60-115) mg/dL Calcium 10.3 H D (8.4-10.2) mg/dL Magnesium 1.7 (1.6-2.6) mg/dL Total Bilirubin 1.0 (0.0-1.0) mg/dL AST 15 (5-31) U/L ALT 16 (0-31) U/L Alkaline Phosphatase 92 (39-117) U/L Total Protein 8.0 (6.5-8.0) g/dL Albumin 4.2 (3.5-5.0) g/dL Lipase 33 (8-78) U/L Beta HCG, Quant < 2 mIU/mL Urine Color Urine Appearance Urine pH (5.0-9.0) Ur Specific [place] (1.005-1.025) Urine Protein (Neg-Trace) mg/dL Urine Glucose (UA) (Negative) mg/dL Urine Ketones (Negative) mg/dL Urine Blood (Negative) Urine Nitrite (Negative) Ur Leukocyte Esterase (Negative) Urine RBC (0-2) /HPF Urine WBC (0-5) /HPF Ur Squamous Epith Cells (0-2) /HPF Urine Bacteria (None Seen) Hyaline Casts (0-2) /LPF COVID-19 ([facility]) (Negative) COVID-19 Clin Com 11/08/22 11/08/22 Range/Units 16:31 16:31 WBC (4.8-10.8) X10*3/uL RBC (4.20-5.50) X10*6/uL Hgb (12.0-16.0) g/dl Hct (37.0-47.0) % MCV (80.0-98.0) fL MCH (27.0-33.0) pg MCHC (31.0-35.0) g/dl RDW (11.0-16.0) % Plt Count (160-400) X10*3/uL MPV (9.4-12.3) fL Immature Gran % (Auto) (0.0-0.4) % Neut % (Auto) (45-73) % Lymph % (Auto) (20-40) % [place] % (Auto) (2-11) % Eos % (Auto) (0-4) % Baso % (Auto) (0-2) % Lymph # (Auto) (1.2-4.9) X10*3/uL [place] # (Auto) (0.1-1.2) X10*3/uL Eos # (Auto) (0.0-0.4) X10*3/uL Baso # (Auto) (0.0-0.2) X10*3/uL Abs Immat Gran (auto) (0.00-0.03) X10*3/uL Absolute Neuts (auto) (2.0-8.3) x10*3/uL Absolute Nucleated RBC (0.0-0.012) X10*3/uL Nucleated RBC % (auto) (0.0-0.2) /100WBC Smear Tech's Comments Sodium (135-145) mmol/L Potassium (3.3-5.1) mmol/L Chloride (96-108) mmol/L Carbon Dioxide (22-29) mmol/L Anion Gap (12-20) BUN (9-16) mg/dL Creatinine (0.5-1.4) mg/dL Estim Creat Clear Calc Estimated GFR Random Glucose (60-115) mg/dL Calcium (8.4-10.2) mg/dL Magnesium (1.6-2.6) mg/dL Total Bilirubin (0.0-1.0) mg/dL AST (5-31) U/L ALT (0-31) U/L Alkaline Phosphatase (39-117) U/L Total Protein (6.5-8.0) g/dL Albumin (3.5-5.0) g/dL Lipase (8-78) U/L Beta HCG, Quant mIU/mL Urine Color Yellow Urine Appearance Clear Urine pH 8.5 (5.0-9.0) Ur Specific [place] 1.025 (1.005-1.025) Urine Protein 100 (2+) H (Neg-Trace) mg/dL Urine Glucose (UA) Negative (Negative) mg/dL Urine Ketones 40 (Negative) mg/dL Urine Blood Moderate (2+) H (Negative) Urine Nitrite Negative (Negative) Ur Leukocyte Esterase Negative (Negative) Urine RBC >20 H (0-2) /HPF Urine WBC 0-5 (0-5) /HPF Ur Squamous Epith Cells 3-5 (0-2) /HPF Urine Bacteria None Seen (None Seen) Hyaline Casts 0-2 (0-2) /LPF COVID-19 ([facility]) Negative (Negative) COVID-19 Clin Com See Note Tests considered The following testing was considered but not selected: CT A/P-see discussion above Discharge Plan Discharge Clinical Impression: Gastroenteritis Patient Disposition: Still a Patient Instructions: Gastroenteritis (ED) Additional Instructions: Start with clear liquids and advance her diet as tolerated Return for any worsening symptoms Prescriptions: New ondansetron 4 mg tablet,disintegrating 4 mg PO Q6H PRN (Reason: nausea and vomiting) Qty: 15 0RF No Action nitrofurantoin monohyd/m-cryst [Macrobid] 100 mg capsule 100 mg PO Q12H 7 Days Qty: 14 0RF Rx Instructions: must administer with a meal/food pyridoxine (vitamin B6) 25 mg tablet 25 mg PO TID PRN (Reason: nausea and vomiting) Qty: 14 0RF ondansetron HCl [Zofran] 4 mg tablet 4 mg PO Q8H PRN (Reason: nausea and vomiting) Qty: 10 0RF cefuroxime axetil 250 mg tablet 250 mg PO BID 7 Days Qty: 14 0RF ondansetron HCl [Zofran] 4 mg tablet 4 mg PO Q8H PRN (Reason: nausea and vomiting) Qty: 30 0RF Rx Instructions: Sublingual tablets Referrals: Gayle Ge MD [Primary Care Provider] - 5 days Stand Alone Forms: Work/School Release
[2022-11-08 12:27] VITALS: BP 125/64; PULSE 95; RESP 24; TEMP 36.6; O2SAT 98; BMI 28.3
[2022-11-08 12:50] LABS: Basophils Percent Auto 0.2 % (0-2); Eosinophils Percent Auto 0.1 % (0-4); Hematocrit 40.5 % (37.0-47.0); Hemoglobin 13.9 g/dl (12.0-16.0); Imm Gran Abs Auto 0.09 X10*3/uL (0.00-0.03); Imm Gran Pct Auto 0.5 % (0.0-0.4); Lymphocytes Absolute Auto 0.9 X10*3/uL (1.2-4.9); Lymphocytes Percent Auto 4.9 % (20-40); MANUAL DIFF FLAG SCAN; Mean Corpuscular HGB Conc 34.3 g/dl (31.0-35.0); Mean Corpuscular Hemoglobin 30.2 pg (27.0-33.0); Mean Corpuscular Volume 87.9 fL (80.0-98.0); Mean Platelet Volume 10.2 fL (9.4-12.3); Monocytes Absolute Auto 0.3 X10*3/uL (0.1-1.2); Monocytes Percent Auto 1.6 % (2-11); Neutrophils Absolute Auto 16.7 x10*3/uL (2.0-8.3); Neutrophils Percent Auto 92.7 % (45-73); Platelet Count 469 X10*3/uL (160-400); Red Blood Count 4.61 X10*6/uL (4.20-5.50); Red Cell Distribution Width 12.9 % (11.0-16.0); SCAN SMEAR FLAG 1
[2022-11-08 12:58] LABS: Alanine Aminotransferase 16 U/L (0-31); Albumin Level 4.2 g/dL (3.5-5.0); Alkaline Phosphatase 92 U/L (39-117); Anion Gap 18 (12-20); Aspartate Amino Transferase 15 U/L (5-31); Blood Urea Nitrogen 19 mg/dL (9-16); Calcium 10.3 mg/dL (8.4-10.2); Carbon Dioxide 19 mmol/L (22-29); Chloride 106 mmol/L (96-108); Creatinine Clr Calc Pharmacy 96.7; Estimated Glomerular Filt Rate > 60; Glucose Random 140 mg/dL (60-115); Magnesium 1.7 mg/dL (1.6-2.6); Potassium 3.8 mmol/L (3.3-5.1); Sodium 139 mmol/L (135-145)
[2022-11-08 13:09] LABS: HCG Quantitative < 2 mIU/mL
[2022-11-08 13:12] LABS: SLIDE REVIEW VERIFIED
[2022-11-08 15:54] VITALS: BP 135/87; PULSE 86; RESP 16; TEMP 37.1; O2SAT 100
[2022-11-08] MEDS: 0.9 % Sodium Chloride 1,000 ML 999 ML IV ×2 (16:14→18:27)
[2022-11-08] MEDS: ondansetron HCL 4 MG/2 ML VIAL IVPUSH ×2 (16:17→17:52)
[2022-11-08 16:49] LABS: Appearance Urine Clear; Color Urine Yellow; Glucose Urine UA Negative (Negative); Leukocyte Esterase Urine Negative (Negative); Nitrite Urine Negative (Negative); PH 8.5 (5.0-9.0); Specific Gravity - Urine 1.025 (1.005-1.025); UMIC TRIGGER UACC YES; Urine Blood Moderate (2+) (Negative); Urine Ketones 40 mg/dL (Negative); Urine Protein 100 (2+) mg/dL (Neg-Trace)
[2022-11-08 17:11] LABS: COVID-19 Test Negative (Negative); IDNOW Serial# 9DB6401D
[2022-11-08 17:43] LABS: Lipase 33 U/L (8-78)
[2022-11-08 17:46] VITALS: TEMP 37.2
[2022-11-08] MEDS: Morphine Sulfate 2 MG/ML CARTRIDGE IVPUSH (17:53)
[2022-11-08] MEDS: Famotidine/PF 20 MG/2 ML VIAL IVPUSH (17:54)
[2022-11-08 18:00] VITALS: BP 100/44; PULSE 94; RESP 16; TEMP 37.3; O2SAT 100
[2022-11-08 18:54] LABS: Bacteria Urine None Seen (None Seen); Hyaline Casts Urine 0-2 /LPF (0-2); RBC Urine >20 /HPF (0-2); WBC Urine 0-5 /HPF (0-5)
--- NOTE | 2022-11-08 19:35 | PC.NURSE ---
pt given po per provider as challange, will discharge if she is ok.
== END 2022-11-08 20:17 | disposition still patient (30) ==
PROVIDERS: Nurse Practitioner Family; Physician Assistant Medical; Emergency Provider Internal Medicine; PCP Family Medicine
DX: K52.9 Noninfective gastroenteritis and colitis, unspecified (principal); Z20.822 Contact with and (suspected) exposure to COVID-19; Z20.828 Contact with and (suspected) exposure to other viral communicable diseases; Z79.899 Other long term (current) drug therapy
CPT/HCPCS: 36415; 80053; 81001; 81003; 83690; 83735; 84702; 85025; 87635; 96361; 96374; 96375; 96376; 99284; J2270; J2405

== ENCOUNTER 2025-03-14 11:32 | Emergency (ER) | payer OTHER, SELFPAY ==
--- NOTE | ~2025-03-14 | US_ITS ---
CLINICAL HISTORY: wbc count, vomiting, RLQ pain US abdomen limited Comparison: None provided Findings: Moderate right hydronephrosis. Appendix is not seen. IMPRESSION: Right hydronephrosis. This document has been electronically signed by: Coy Fitzgerald MD on 03/14/2025 19:45:51
--- NOTE | ~2025-03-14 | MR_ITS ---
CLINICAL HISTORY: Right lower quadrant pain, rule out appendicitis. Pt is 14 wks . Marker placed on area of pain by pt. US appendix was sent for comparison MR abdomen without gadolinium Comparison: US - US APPENDIX - 03/14/25 17:03 EDT Findings: Moderate right hydronephrosis. Tortuosity of the proximal right ureter. No left hydronephrosis. The liver, spleen, gallbladder, and pancreas are unremarkable. No adrenal nodules. No ascites. IMPRESSION: No acute findings in the abdomen. Noninflamed appendix. Moderate right hydronephrosis, likely secondary to gravid uterus. Please see separately dictated pelvic MRI report. This document has been electronically signed by: Tennille Fitzgerald MD on 03/14/2025 22:05:38
--- NOTE | ~2025-03-14 | MR_ITS ---
CLINICAL HISTORY: appy rule out MR PELVIS without contrast: Comparison: US - US APPENDIX - 03/14/25 17:03 EDT Findings: The appendix is normal in caliber (series 22, image 38). Gravid uterus. T2 hypointense appearance of the myometrium at the right anterior aspect (series 22, image 52) which can be seen with a uterine contraction. Normal left ovary. The right ovary is not definitively seen. IMPRESSION: 1. Gravid uterus with possible uterine contraction in the right anterior aspect. 2. Noninflamed appendix. This document has been electronically signed by: Tennille Fitzgerald MD on 03/14/2025 22:08:11
--- NOTE | ~2025-03-14 | US_ITS ---
EXAMINATION: US KIDNEY RIGHT HISTORY: pain hematuria, crystals in urine TECHNIQUE: Real-time grayscale ultrasound imaging of the right kidney was performed and images were reviewed. COMPARISON: There are no prior studies available for comparison. FINDINGS: The right kidney measures 12.6 x 6.6 x 5.9 cm. Renal parenchymal echotexture and thickness are normal. There are no masses. There is moderate hydronephrosis and hydroureter. No renal calculi are identified. US/US renal RT IMPRESSION: Moderate right hydroureteronephrosis. If there is clinical concern for ureteral calculi, unenhanced CT is recommended. Otherwise CT urography could be performed. Electronically signed by: Oscar Espana MD 03/14/2025 03:12 PM EDT
--- NOTE | ~2025-03-14 | US_ITS ---
EXAMINATION: US , LIMITED CLINICAL INFORMATION: with abdominal pain COMPARISON: None available. TECHNIQUE: Limited Grayscale and color Doppler imaging was performed through the uterus FINDINGS: Additional age by LMP 14 weeks 6 days. Estimated date of delivery 09/06/2025 Placenta is posteriorly located. Intrauterine gestational sac containing fetus with a heart rate of 161 bpm. Femoral length measures 16 mm consistent with gestational age 14 weeks 6 days Right ovary measures 2.5 x 1.2 x 1.8 cm. There is blood flow on color Doppler. Left ovary measures 1.9 x 0.8 x 2.0 cm US/US OB limited IMPRESSION: Single living intrauterine gestation. Size and dates are concordant, Estimated age 14 weeks 6 days Estimated delivery 09/06/2025. Electronically signed by: Arden Spencer MD 03/14/2025 03:22 PM EDT
[2025-03-14 11:34] VITALS: BP 113/57; PULSE 124; RESP 18; TEMP 36.3; O2SAT 97; BMI 38.1
--- NOTE | 2025-03-14 11:37 | ED_ITS ---
HPI - General Adult General Chief complaint: Nausea/Vomiting/Diarrhea Stated complaint: Nausea Vomiting Diarrhea Time Seen by Provider: 03/14/25 12:40 Source: patient and old records reviewed Mode of arrival: ambulatory Limitations: no limitations History of Present Illness ED Provider: JED CONKLIN narrative: 35 yo female with no sig PMH she is prior emesis here with c/o R abdominal pain and R flank pain with n/v. She has urinary symptoms. She has chills. She is 14 weeks she has no bleeding or issues with the . She has not had kidney stones before. She reports she cannot eat or drink. No medications taken at home. No fevers. MD complaint: abd pain, n/v Onset (ago): day(s) (4) Location: abdomen Radiation: non-radiation Severity: moderate Quality: stabbing Pain Consistency: constant Relieving factors: none Exacerbating factors: none Associated symptoms: fever/chills, headaches, loss of appetite, malaise and nausea/vomiting Treatments prior to arrival: none Related Data Previous Rx's ?Medication ?Instructions ?Recorded nitrofurantoin 100 mg PO Q12H 7 days #14 ca ps 06/30/20 monohydrate/macrocrystals 100 mg capsule (Macrobid) pyridoxine (vitamin B6) 25 mg 25 mg PO TID PRN nausea and 06/30/20 tablet vomiting #14 tabs ondansetron HCl 4 mg tablet 4 mg PO Q8H PRN nausea and 07/03/20 (Zofran) vomiting #30 tabs cefuroxime axetil 250 mg tablet 250 mg PO BID 7 days # 14 tabs 07/23/20 ondansetron HCl 4 mg tablet 4 mg PO Q8H PRN nausea and 07/23/20 (Zofran) vomiting #10 tabs ondansetron 4 mg disintegrating 4 mg PO Q6H PRN nausea and 11/08/22 tablet vomiting #15 tabs Allergies Allergy/AdvReac Type Severity Reaction Status Date / Time No Known Drug Allergies Allergy Unknown Unknown Verified 03/14/25 11:35 Review of Systems 2 Review of Systems: Constitutional : No Weight loss, No Fever, pos Chills ENT/Mouth : No sore throat, No Rhinorrhea Eyes: No Swelling, No Redness Cardiovascular : No Chest Pain, No SOB, NoEdema Respiratory : No Cough, No Sputum, No Wheezing Gastrointestinal : Positive Nausea, Positive Vomiting, positive Diarrhea, positive abdominal Pain, No Hematochezia, No Melena Genitourinary : No Dysuria, No Urinary Frequency, No Hematuria, No Urgency Musculoskeletal : No joint pain, No Myalgias, No Joint Swelling Skin : No Skin Lesions, No rash Neuro : No Weakness, No Numbness, No Dizziness, No Headache All other systems reviewed and are negative. [facility] Past Medical History Attestation statement: The following information was validated with the patient. Source: old records reviewed Medical History No known health problems Social History Social History Alcohol intake: never Smoked in Last 30 Days: No Use of substances other than those prescribed or required for medical reasons: No Substance Use Type: Marijuana Advance Directives: No Advance Directives Information Provided: Yes Do you have a plan to hurt others: No Plan Patient : Yes Physical Exam ED Vital Signs: Vital Signs - 24 hr 03/14/25 11:34 03/14/25 12:31 03/14/25 16:00 Temperature 97.4 F 98.2 F Pulse Rate 124 H 110 H 107 H Respiratory Rate 18 12 18 Blood Pressure 113/57 L 128/68 103/57 L Pulse Oximetry 97 100 98 Oxygen Delivery Method Room Air Room Air Room Air BMI result Body Mass Index 38.1 Appearance: Alert. Oriented X3. Mild acute distress. active vomiting Eyes: Pupils equal, round and reactive to light. ENT: Pharynx dry MM Neck: Normal inspection. Neck supple. CVS: Normal heart rate and rhythm. Pulses normal. Respiratory: No respiratory distress. Breath sounds normal. Abdomen: Soft and ttp along R CVA area Skin: Skin warm and dry. Normal skin color. Extremities: No lower extremity edema. No calf ttp Neuro: Oriented X 3. No motor deficit. No sensory deficit. Course Course Course Narrative: Rapid medical examination performed in triage by Elzbieta Montoya PA-C. Patient is a 35 year old assigned female at presenting to the emergency department with abdominal pain, nausea, vomiting, and being 14 weeks . Detailed physical exam and review of systems are deferred to the felt hat mellowing machine operator. Labs ordered. Patient placed back in the waiting room pending room availability and results. Medications Administered Generic Name Dose Route Start Last Admin Trade Name Freq PRN Reason Stop Dose Admin Sodium Chloride 1,000 mls @ 80 mls/hr 03/14/25 15:45 03/14/25 15:57 Ns IVCONT 80 mls/hr .[id number] SUSHIL Administration Discontinued Medications Generic Name Dose Route Start Last Admin Trade Name Freq PRN Reason Stop Dose Admin Diphenhydramine HCl 25 mg 03/14/25 12:58 03/14/25 13:14 Diphenhydramine Hcl 50 Mg/Ml Vial IVPUSH 03/14/25 12:59 25 mg ONCE ONE Administration Sodium Chloride 1,000 mls @ 999 mls/hr 03/14/25 12:58 03/14/25 15:46 Ns IV 03/14/25 13:58 Infused .Q1H1M ONE Infusion Acetaminophen 1,000 mg in 100 mls @ 400 mls/hr 03/14/25 12:58 03/14/25 13:35 Ofirmev IV 03/14/25 13:12 Infused ONCE ONE Infusion Ceftriaxone Sodium 1 gm/ 50 mls @ 100 mls/hr 03/14/25 13:01 03/14/25 13:45 Sodium Chloride IV 03/14/25 13:30 Infused ONCE ONE Infusion Metoclopramide HCl 10 mg 03/14/25 12:58 03/14/25 13:26 Metoclopramide Hcl 10 Mg/2 Ml Vial IVPUSH 03/14/25 12:59 10 mg ONCE ONE Administration Medical Decision Making Medical Decision Making MDM Narrative: 35 yo female 14 weeks prior emesis in denies any other PMH here with c/o of R flank pain n/v at this time will need basic labs, US of R kidney, empiric ceftriaxone given concern for possible pyelo, IVF x 2L, IV tylenol, reglan and benadryl for care. Possible renal colic vs pyelo, no RLQ to suggest appendicitis Differential Diagnosis Differential Diagnoses: The differential diagnosis associated with the presentation includes renal colic, pyelo Admission/Observation Consideration of admission/observation: Escalation of care including admission/observation considered admit for IV abx, fluids and n/v pain control Consult Healthcare Provider Management of the patient was discussed with: Hospitalist (will admit) and Admin Dir (Dr. Harris aware - aware of plan to admit) Dr. Harris now wants appendix US - I did order this signed out to Dr. Reyes Chamberlain aware - MRI if US negative Lab Data MDM Lab Attestation statement: I reviewed the patient's lab results. 03/14/25 11:53 03/14/25 11:52 Labs: Lab Results 03/14/25 03/14/25 03/14/25 Range/Units 11:52 11:53 13:06 WBC 15.5 H (4.8-10.8) X10*3/uL RBC 3.86 L (4.20-5.50) X10*6/uL Hgb 11.6 L (12.0-16.0) g/dl Hct 34.1 L (37.0-47.0) % MCV 88.3 (80.0-98.0) fL MCH 30.1 (27.0-33.0) pg MCHC 34.0 (31.0-35.0) g/dl RDW 13.2 (11.0-16.0) % Plt Count 385 (160-400) X10*3/uL MPV 9.4 (9.4-12.3) fL Immature Gran % (Auto) 1.3 H (0.0-0.4) % Neut % (Auto) 84.8 H (45-73) % Lymph % (Auto) 7.6 L (20-40) % [place] % (Auto) 5.8 (2-11) % Eos % (Auto) 0.2 (0-4) % Baso % (Auto) 0.3 (0-2) % Lymph # (Auto) 1.2 (1.2-4.9) X10*3/uL [place] # (Auto) 0.9 (0.1-1.2) X10*3/uL Eos # (Auto) 0.0 (0.0-0.4) X10*3/uL Baso # (Auto) 0.1 (0.0-0.2) X10*3/uL Abs Immat Gran (auto) 0.20 H (0.00-0.03) X10*3/uL Absolute Neuts (auto) 13.1 H (2.0-8.3) x10*3/uL Absolute Nucleated RBC 0.000 (0.0-0.012) X10*3/uL Nucleated RBC % (auto) 0.0 (0.0-0.2) /100WBC Sodium 136 (135-145) mmol/L Potassium 3.4 (3.3-5.1) mmol/L Chloride 101 (96-108) mmol/L Carbon Dioxide 24 (22-29) mmol/L Anion Gap 14 (12-20) BUN 16 (9-16) mg/dL Creatinine 0.79 (0.5-1.4) mg/dL Estim Creat Clear Calc 108.5 Estimated GFR > 60 Random Glucose 125 H (60-115) mg/dL Lactic Acid 1.1 (0.5-2.0) mmol/L Calcium 10.0 (8.4-10.2) mg/dL Magnesium 1.9 (1.6-2.6) mg/dL Total Bilirubin 0.6 (0.0-1.0) mg/dL AST 15 (5-31) U/L ALT 14 (0-31) U/L Alkaline Phosphatase 92 (39-117) U/L Total Protein 7.3 (6.5-8.0) g/dL Albumin 3.9 (3.5-5.0) g/dL Beta HCG, Quant 23827 mIU/mL Urine Color Yellow Urine Appearance Cloudy Urine pH 6.5 (5.0-9.0) Ur Specific [place] 1.020 (1.005-1.025) Urine Protein 30 (1+) H (Neg-Trace) mg/dL Urine Glucose (UA) Negative (Negative) mg/dL Urine Ketones 40 (Negative) mg/dL Urine Blood Moderate (2+) H (Negative) Urine Nitrite Negative (Negative) Ur Leukocyte Esterase Large (3+) H (Negative) Urine RBC >20 H (0-2) /HPF Urine WBC >50 H (0-5) /HPF Ur Squamous Epith Cells >20 (0-2) /HPF Urine Bacteria 3+ (None Seen) Hyaline Casts 0-2 (0-2) /LPF Urine Yeast Present Independent Interpretation I performed an independent interpretation of an: Ultrasound (no stone) Radiology Impression Discussion of test interpretation with radiology: I have reviewed the radiologist's reading. External Record Review External record reviewed: Outpatient record Discharge Plan Discharge Clinical Impression: Pyelonephritis Elevated WBC count Qualifiers: Leukocytosis type: unspecified Qualified Code(s): D72.829 - Elevated white blood cell count, unspecified Nausea & vomiting Qualifiers: Vomiting type: unspecified Qualified Code(s): R11.2 - Nausea with vomiting, unspecified Patient Disposition: Admitted As Inpatient Print Language: Kenyan
[2025-03-14 12:01] LABS: MANUAL DIFF FLAG NO
[2025-03-14 12:03] LABS: Appearance Urine Cloudy; Glucose Urine UA Negative (Negative); PH 6.5 (5.0-9.0); Specific Gravity - Urine 1.020 (1.005-1.025); UMIC TRIGGER UACC YES
[2025-03-14 12:04] LABS: Hematocrit 34.1 % (37.0-47.0); Hemoglobin 11.6 g/dl (12.0-16.0); Imm Gran Abs Auto 0.20 X10*3/uL (0.00-0.03); Imm Gran Pct Auto 1.3 % (0.0-0.4); Lymphocytes Absolute Auto 1.2 X10*3/uL (1.2-4.9); Mean Corpuscular HGB Conc 34.0 g/dl (31.0-35.0); Mean Corpuscular Hemoglobin 30.1 pg (27.0-33.0); Mean Corpuscular Volume 88.3 fL (80.0-98.0); NRBC Abs Auto 0.000 X10*3/uL (0.0-0.012); NRBC Pct Auto 0.0 /100WBC (0.0-0.2); Platelet Count 385 X10*3/uL (160-400); Red Blood Count 3.86 X10*6/uL (4.20-5.50); White Blood Count 15.5 X10*3/uL (4.8-10.8)
[2025-03-14 12:11] LABS: UACC Culture Trigger YES
[2025-03-14 12:24] LABS: Alanine Aminotransferase 14 U/L (0-31); Albumin Level 3.9 g/dL (3.5-5.0); Alkaline Phosphatase 92 U/L (39-117); Anion Gap 14 (12-20); Aspartate Amino Transferase 15 U/L (5-31); Blood Urea Nitrogen 16 mg/dL (9-16); Calcium 10.0 mg/dL (8.4-10.2); Carbon Dioxide 24 mmol/L (22-29); Chloride 101 mmol/L (96-108); Creatinine Clr Calc Pharmacy 108.5; Estimated Glomerular Filt Rate > 60; Magnesium 1.9 mg/dL (1.6-2.6); Potassium 3.4 mmol/L (3.3-5.1); Sodium 136 mmol/L (135-145); Total Protein 7.3 g/dL (6.5-8.0)
[2025-03-14 12:31] VITALS: BP 128/68; PULSE 110; RESP 12; TEMP 36.8; O2SAT 100
--- NOTE | 2025-03-14 13:32 | PC.NURSE ---
pt is alert and oriented, skin pwd, respirations even and unlabored, pt is 14 weeks preg and is reporting that starting on Friday having right sided lower back pain/vomiting/frequent urination and not emptying completely and today started with lower abd pain, bowel sounds in all 4 quadrants but tender all over the abd, no vaginal bleeding reported
--- NOTE | 2025-03-14 14:06 | PC.NURSE ---
pt reports feeling better pain at 5/10 and nausea improved, pt going to ultrasound
--- NOTE | 2025-03-14 15:34 | P.CONOB_ITS ---
OB Consult Note - [facility] Data Service Date: 03/14/25 Primary Care Provider: None Physician Narrative I was consulted on Himanshu Maza who is a 35 year old 3 para 2 at 14 weeks of gestation presenting to emergency room with right abdominal pain and R flank pain associated with nausea and vomiting. The patient is complaining of vaginal discharge no itching or foul odor, no vaginal bleeding . No history of kidney stones previous. The workup done emergency room included the following: White count 15.5, H&H= 11.6/34.1 Lactic acid within normal UA positive for protein, blood and leukocyte esterase with RBC in WBC Blood culture sent GC/CT and BV panel collected Ob ultrasound showed the following: IMPRESSION: Single living intrauterine gestation. Size and dates are concordant, Estimated age 14 weeks 6 days Estimated delivery 09/06/2025. Renal ultrasound showed the following: IMPRESSION: Moderate right hydroureteronephrosis. If there is clinical concern for ureteral calculi, unenhanced CT is recommended. Otherwise CT urography could be performed. OB [facility] Past Medical History Medical History No known health problems Social History Social History Alcohol intake: never Smoked in Last 30 Days: No Use of substances other than those prescribed or required for medical reasons: No Substance Use Type: Marijuana Advance Directives: No Advance Directives Information Provided: Yes Do you have a plan to hurt others: No Plan Patient : Yes Meds Allergies Allergy/AdvReac Type Severity Reaction Status Date / Time No Known Drug Allergies Allergy Unknown Unknown Verified 03/14/25 11:35 OB Flowsheet OB Flowsheet & Tools History 2 2 Elective abortions Para 1 Spontaneous abortions Hx # Term Pregnancies Ectopic pregnancies Hx # Pregnancies Multiple births OB Physical Exam Physical Exam Gastrointestinal: Bowel sounds present, Tender (Right lower quadrant tenderness), No rebound and No guarding Genitourinary (Female): Normal external genitalia and CVAT, Right Additional Comments: Vaginal discharge Evaluation Baseline FHR:: 160 OB Consult Results Labs 03/14/25 11:53 03/14/25 11:52 Labs: Short CBC 03/14/25 Range/Units 11:53 WBC 15.5 H (4.8-10.8) X10*3/uL Hgb 11.6 L (12.0-16.0) g/dl Hct 34.1 L (37.0-47.0) % Plt Count 385 (160-400) X10*3/uL BMP 03/14/25 11:52 Sodium 136 Potassium 3.4 Chloride 101 Carbon Dioxide 24 BUN 16 Creatinine 0.79 Calcium 10.0 Liver Function 03/14/25 Range/Units 11:52 Total Bilirubin 0.6 (0.0-1.0) mg/dL AST 15 (5-31) U/L ALT 14 (0-31) U/L Alkaline Phosphatase 92 (39-117) U/L Albumin 3.9 (3.5-5.0) g/dL Urine 03/14/25 Range/Units 11:52 Urine Color Yellow Urine Appearance Cloudy Urine pH 6.5 (5.0-9.0) Ur Specific [place] 1.020 (1.005-1.025) Urine Protein 30 (1+) H (Neg-Trace) mg/dL Urine Glucose (UA) Negative (Negative) mg/dL OB - CN: A/P Assessment and Plan (1) Pyelonephritis: Status: Acute Assessment and Plan: Recommended Blood culture and start empiric antibiotic with ceftriaxone IV 2 g Q 24 hours. The patient will be admitted to the hospitalist service Once improves the patient could be switched to oral therapy guided by culture susceptibility results and discharge on Based upon the high-risk of implication with pyelonephritis recommended hospitalization and IV antibiotics for 24-48 hours till the patient is symptomatically improved. Because of the risk of recurrence in , I recommend after completion of treatment the initial episode of pyelonephritis to start the patient on low-dose antimicrobial preventive therapy with 100 mg p.o. q.d. at bedtime till the end of vitamin 1 tablet p.o. q.d. (2) Hydronephrosis: Status: Acute Assessment and Plan: Since there is evidence of hydronephrosis, could be physiologic in but recommend to consult urology for the possibility of nephrolithiasis (3) Right lower quadrant abdominal tenderness: Status: Acute Assessment and Plan: Given the patient's presentation with the right rule quadrant tenderness, nausea and vomiting and elevated white count, recommended to Dr. Judd appendix ultrasound and surgical consult to rule out appendicitis Time Spent With Patient Time: Total time managing care of this patient today ____ minutes.
[2025-03-14 16:00] VITALS: BP 103/57; PULSE 107; RESP 18; O2SAT 98
--- NOTE | 2025-03-14 16:40 | PM.CNGS ---
History of Present Illness Consult details Consult date: 03/14/25 Narrative: 35-year-old female, 14 weeks , here in the ER because of right-sided abdominal pain. She says that this has been going on for almost 48 hours now. This has a pain goes all the way to her back. She says that last night she had vomiting because of the pain. She denies obvious dysuria. She denies any diarrhea. She denies any fever or chills. She says the pain has been constant throughout. [facility] Past Medical History Medical History (Updated 03/16/25 @ 00:01 by Yuliya Osorio) Right sided abdominal pain No known health problems Social History Social History Alcohol intake: never Substance Use Type: Marijuana Meds Allergies Allergy/AdvReac Type Severity Reaction Status Date / Time No Known Drug Allergies Allergy Unknown Unknown Verified 03/14/25 11:35 Active Medications: Current Medications Sodium Chloride (Ns) 1,000 mls @ 80 mls/hr IVCONT .[id number] SUSHIL Last Admin: 03/14/25 15:57 Dose: 80 mls/hr Home Medications ?Medication ?Instructions ?Recorded ?Confirmed ?Last Taken ?Type vit no.95-ferrous 1 tab PO DAILY 03/14/25 03/14/25 03/13/25 History fumarate 28 mg-folic acid 800 mcg tablet () Physical Exam Vital Signs: Vital Signs: Last Vital Signs Temp 98.2 F 03/14/25 12:31 Pulse 107 H 03/14/25 16:00 Resp 18 03/14/25 16:00 BP 103/57 L 03/14/25 16:00 Pulse Ox 98 03/14/25 16:00 O2 Del Method Room Air 03/14/25 16:00 BMI result Body Mass Index 38.1 Const: General: no acute distress Orientation/consciousness: patient oriented x3 Neck: Neck: Yes no lymphadenopathy Resp: Auscultation: clear to auscultation bilaterally Cardio: Rhythm: regular rhythm GI: Other: Tender on the entire right side all the way to the flank, with significant right costovertebral angle tenderness Palpation (GI): Soft to palpation, nontender and no guarding Neuro: General: patient oriented x3 Results Labs 03/14/25 11:53 03/14/25 11:52 Labs: Abnormal lab results 03/14/25 03/14/25 Range/Units 11:52 11:53 WBC 15.5 H (4.8-10.8) X10*3/uL RBC 3.86 L (4.20-5.50) X10*6/uL Hgb 11.6 L (12.0-16.0) g/dl Hct 34.1 L (37.0-47.0) % Immature Gran % (Auto) 1.3 H (0.0-0.4) % Neut % (Auto) 84.8 H (45-73) % Lymph % (Auto) 7.6 L (20-40) % Abs Immat Gran (auto) 0.20 H (0.00-0.03) X10*3/uL Absolute Neuts (auto) 13.1 H (2.0-8.3) x10*3/uL Random Glucose 125 H (60-115) mg/dL Urine Protein 30 (1+) H (Neg-Trace) mg/dL Urine Blood Moderate (2+) H (Negative) Ur Leukocyte Esterase Large (3+) H (Negative) Urine RBC >20 H (0-2) /HPF Urine WBC >50 H (0-5) /HPF Short CBC 03/14/25 Range/Units 11:53 WBC 15.5 H (4.8-10.8) X10*3/uL Hgb 11.6 L (12.0-16.0) g/dl Hct 34.1 L (37.0-47.0) % Plt Count 385 (160-400) X10*3/uL BMP 03/14/25 11:52 Sodium 136 Potassium 3.4 Chloride 101 Carbon Dioxide 24 BUN 16 Creatinine 0.79 Calcium 10.0 Liver Function 03/14/25 Range/Units 11:52 Total Bilirubin 0.6 (0.0-1.0) mg/dL AST 15 (5-31) U/L ALT 14 (0-31) U/L Alkaline Phosphatase 92 (39-117) U/L Albumin 3.9 (3.5-5.0) g/dL Urine 03/14/25 Range/Units 11:52 Urine Color Yellow Urine Appearance Cloudy Urine pH 6.5 (5.0-9.0) Ur Specific [place] 1.020 (1.005-1.025) Urine Protein 30 (1+) H (Neg-Trace) mg/dL Urine Glucose (UA) Negative (Negative) mg/dL All other labs normal. Assessment and Plan (1) Right sided abdominal pain: Status: Acute She has right-sided abdominal pain all the the right flank with significant costovertebral angle tenderness. Overall clinical findings suggest pyelonephritis. Her urinalysis shows significant leukocyte esterase as well as WBCs consistent with this. However, I was asked to rule out acute appendicitis which is part of the differential I would recommend checking her appendix with an ultrasound. If the ultrasound shows the appendix to be not inflamed, then she should be treated for pyelonephritis. If this has equivocal, she should have an MRI. We will recheck on her later on. Procedures Date of Service Date of Service: 03/16/25
--- OUTSIDE RECORDS SUMMARY | 2025-03-14 17:21 | XMS_ITS | Encounter Summary ---
Author Organization [facility] Address [address] [place] [address] Care Team Providers Care Marine Engineering Professor Name Role Phone Gayle Ge MD Primary Care Provider [phone] Encounter Details Date Type Department Care Team (Late Contact Info) Description 2025 Results Follow-Up Obstetrics and Gynecology - [address] [phone] Quiana Osborne CNM [address] [place] [place] [address] Social History Tobacco Use Types Packs/Day Years Used Date Smoking Tobacco: Former Smokeless Tobacco: Never Alcohol Use Standard Drinks/Week Comments Not Currently 0 (1 standard drink = 0.6 oz pur e alcohol) Estimated Date of Delivery Comme nts Yes 09/06/2025 Date entered andres or to episode creation Sex and Gender Information Value Date Recorded Sex Assigned at Not on file Legal Sex Female 10:47 PM EST Gender Identity Not on file Sexual Orientation Not on file Occupation Industry Job Start Date Job End Date unemployed Not on file Not on file Not on file documented as of this encounter Plan of Treatment Upcoming Encounters Date Type Department Care Team (Late Contact Info) Description 03/24/2025 3:00 PM EST Initial Obstetrics and Gynecology - [address] [phone] Quiana Osborne CNM [address] [place] [address] 04/21/2025 1:00 PM EST Ancillary Procedure [facility] [address] [address] documented as of this encounter Visit Diagnoses Not on filedocumented in this encounter Care Teams Marine Engineering Professor Relationship Specialty Start Date End Date Gayle Ge MD [address] [place], [place] [address] [address] PCP - General 01/02/23 documented as of this encounter
--- OUTSIDE RECORDS SUMMARY | 2025-03-14 17:22 | XMS_ITS | Encounter Summary ---
Author Organization [facility] Address [address] [place] [address] Care Team Providers Care Healthcare Administration Internship Name Role Phone Gayle Ge MD Primary Care Provider [phone] Encounter Details Date Type Department Care Team (Late Contact Info) Description 02/28/2025 Results Follow-Up Obstetrics and Gynecology - [address] [phone] Quiana Osborne CNM [address] [place] [address] Social History Tobacco Use Types Packs/Day Years [...] PM EST Initial Obstetrics and Gynecology - [address] [phone] Quiana Osborne CNM [address] [place] [address] 04/21/2025 1:00 PM EST Ancillary Procedure [facility] [address] [address] documented as of this encounter Visit Diagnoses Not on filedocumented in this encounter Care Teams Healthcare Administration Internship Relationship Specialty Start Date End Date Gayle Ge MD [address] [place], [place] [address] [address] PCP - General 01/02/23 documented as of this encounter
--- OUTSIDE RECORDS SUMMARY | 2025-03-14 17:22 | XMS_ITS | Encounter Summary ---
Author Organization [facility] Address [address] [place] [address] Care Team Providers Care Courseware Developer Name Role Phone Gayle Ge MD Primary Care Provider [phone] Encounter Details Date Type Department Care Team (Late Contact Info) Description 02/28/2025 Results Follow-Up Obstetrics and Gynecology - [address] [phone] Quiana Osborne CNM [address] [place] [address] Social History Tobacco Use Types Packs/Day Years [...] PM EST Initial Obstetrics and Gynecology - [address] [phone] Quiana Osborne CNM [address] [place] [address] 04/21/2025 1:00 PM EST Ancillary Procedure [facility] [address] [address] documented as of this encounter Visit Diagnoses Not on filedocumented in this encounter Care Teams Courseware Developer Relationship Specialty Start Date End Date Gayle Ge MD [address] [place], [place] [address] [address] PCP - General 01/02/23 documented as of this encounter
--- OUTSIDE RECORDS SUMMARY | 2025-03-14 17:22 | XMS_ITS | Encounter Summary ---
Author Organization [facility] Address [address] [place] [address] Care Team Providers Care Landscaper Name Role Phone Gayle Ge MD Primary Care Provider [phone] Encounter Details Date Type Department Care Team (Late Contact Info) Description 02/28/2025 Results Follow-Up Obstetrics and Gynecology - [address] [phone] Quiana Osborne CNM [address] [place] [address] Social History Tobacco Use Types Packs/Day Years [...] PM EST Initial Obstetrics and Gynecology - [address] [phone] Quiana Osborne CNM [address] [place] [address] 04/21/2025 1:00 PM EST Ancillary Procedure [facility] [address] [address] documented as of this encounter Visit Diagnoses Not on filedocumented in this encounter Care Teams Landscaper Relationship Specialty Start Date End Date Gayle Ge MD [address] [place], [place] [address] [address] PCP - General 01/02/23 documented as of this encounter
--- OUTSIDE RECORDS SUMMARY | 2025-03-14 17:22 | XMS_ITS ---
Author Name [facility] Organization Unknown Care Team Organization Name Specialty Phone Email Start Date End Da shefali [facility] Gayle Ge Primary Care 03/26/20222023
--- OUTSIDE RECORDS SUMMARY | 2025-03-14 17:22 | XMS_ITS | Clinical Summary ---
Author Organization [address] Address [address] [place], [place] [address] [place] [address] Phone Care Team Providers Care Workforce Management Consultant Name Role Phone Gayle Ge MD Primary Care Provider Allergies No known active allergies Medications vitamin iron fum-folic acid 27-0.8 mg per tablet Take 1 tablet by mouth 1 (one) time each day. Active Active Problems Problem Noted Date Diagnosed Date Rubella non-immune status, antepartum 2025 Overview (2025): Vaccinate care, [facility] 02/17/2025 Overview (02/28/2025): 1. [facility] site: [facility]: [address] [place] [address] ([phone]) 2. Delivery site: 3. Dating criteria: LMP 4. Blood type: O-Positive 6. Genetic screening: Date: Result: Panorama: low risk male Horizon: neg Nuchal: Scheduled Survey: MSAFP: 7. GBS: Date: 8. FOB name: Jorge 9. Plans A. Epidural or other pain management - B. Labor support identified - C. Tdap - Date: Flu - Date: D. Breast or Bottle feed: Bottle feeding E. Baby's name - F. Circumcision - 10. Hospital Course: Estimated Date of Delivery Comme nts Yes 09/06/2025 Date entered andres or to episode creation Encounters Date Type Department Care Team Description 03/08/2025 Telephone Obstetrics and Gynecology - [address] [phone] Quiana Osborne CNM 02/28/2025 Results Follow-Up Obstetrics and Gynecology - [address] [phone] Quiana Osborne CNM 02/28/2025 Results Follow-Up Obstetrics and Gynecology - [address] [phone] Quiana Osborne CNM 02/28/2025 Results Follow-Up Obstetrics and Gynecology - [address] [phone] Quiana Osborne CNM 02/24/2025 11:00 AM EDT Ancillary Procedure Maternal Medicine - [address] [phone] Encounter for screening of mother; Encounter for routine screening for malformation using ultrasonics; Encounter for screening for malformations; Encounter for nuchal translucency testing 2025 Results Follow-Up Obstetrics and Gynecology - [address] [phone] Quiana Osborne CNM 02/17/2025 10:00 AM EDT Clinical Support Obstetrics and Gynecology - [address] [phone] Encounter for screening of mother (Primary Dx); Encounter for routine screening for malformation using ultrasonics; care, subsequent in first trimester 02/07/2025 1:00 PM EDT Clinical Support Obstetrics and Gynecology - [address] [phone] Irregular periods (Primary Dx) from Last 3 Months Surgical History Surgery Date Site/Laterality Comments WISDOM TOOTH EXTRACTION PROCEDURE: HISTORICAL WISDOM TEETH EXTRACTION; COMMENT: age 14 Medical History Medical History Date Comments Patient denies medical problems DX:Patient denies medical problems Family History Medical History Relation Name Comments No Known Problems Father No Known Problems Maternal Grandfather No Known Problems Maternal Grandmother No Known Problems Mother Cancer Paternal Grandfather Lung cancer Paternal Grandfather No Known Problems Paternal Grandmother No Known Problems Sister 1 No Known Problems Sister 2 Breast cancer Neg Hx Colon cancer Neg Hx Ovarian cancer Neg Hx Relation Name Status Comments Father Alive Maternal Grandfather Unknown Maternal Grandmother Unknown Mother Alive Paternal Grandfather Paternal Grandmother Alive Sister 1 Alive Sister 2 Alive Social History Tobacco Use Types Packs/Day Years [...] file Not on file Not on file Obstetrics History Para Term AB IAB SAB Ectopic Multiple Livin g Live Births 3 2 2 2 2 Date Outcome GA Total Labor Labor/2nd/3rd Weight Sex Type Anes PTL Serena A1 A5 Name Clin 02/13 Term 38w 4d F Living 01/23 Term 38w 6d 2960 g (104.4 oz) F Vag-S pont Epidura l Living Radhames o, CNM Complications:None Current Summary Episode Dates Number of Fetuses Estimated Date of Delivery 02/17/2025 - Present (03/14/2025) 09/06/2025 (based on Alternate RUTH Entry) Dating Summary Based On RUTH GA Diff Last Menstrual Period on 11/30/2024 (Exact Date) 09/06/2025 Same Alternate RUTH Entry 09/06/2025 Working Comment:Date entered prior t o episode creation Vitals Pregravid Weight Height TWG (As of 03/14/2025) Pregrav id BMI 68 kg (150 lb) 1.549 m (61 ) -1.814 kg (-4 lb) 28.36 Notes Progress Notes - Clinical [facility] pport - 02/17/2025 - GA:11w2d 02/17/2025 - 11w2d - Keeley Alex RN Levi Maza is a 35 y.o. old female at 11w2d. This is Unplanned. The patient feels happy about the . The FOB is happy. FOB Jorge is the father of her 2 other children ages 8 and 4. No pets Patient's last menstrual period was Patient's last menstrual period was 11/30/2024 (exact date). (exact date)., which would make her currently 11w2d with an Estimated Date of Delivery: 09/06/25. She is certain of her date. An ultrasound has been ordered to confirm dating Patient has significant history of: SAVD 2016 and 2020 uncomplicated OB Past Medical History: Have you had or do you currently have: Diabetes? No Hypertension? No Heart disease, Mitral valve Prolapse, or Rheumatic fever? No An Autoimmune disease such as Lupus or Rheumatoid Arthritis? No Epilepsy, Seizures, or Spells? No Migraine Headaches? No Stroke or loss of function or sensation? No Additional Questions: Have you ever been treated for anxiety and/or depression? No Are you having problems with crying spells or loss of self-esteem? No Have you ever required psychiatric care? No Have you ever had hepatitis, liver disease or jaundice? No Have you ever been treated for blood clots in your veins, deep venous thrombosis, inflammation in the veins, thrombosis, phlebitis, pulmonary embolism or varicosities? No Have you had excessive bleeding after surgery or dental work? No Do you bleed more than other women after a cut or scratch? No Do you have a history of anemia? No Have you ever had Thyroid problems or taken Thyroid medications? No Do you have any other Endocrine Problems (ie. PCOS)? No Have you ever been in a major accident or suffered serious trauma? No Within the last year, has anyone hit, slapped, kicked or otherwise hurt you? No In the last year, has anyone forced you to have sex when you didn't want to? No Do you feel safe at home? No Have you ever received a blood transfusion? No Would you refuse a blood transfusion if a doctor judged to be medically necessary? No Would you rather than receive a blood transfusion? No If you answered yes to the above questions, is this for jehovah's witness reasons? N/A Do you know what your blood type is or if you are Rh Negative? yes O pos Have you ever had abnormal antibodies in your blood? unknown Have you ever had asthma? No Have you every had Tuberculosis? No Have you ever had any breast problems? No Have you ever breast fed? Yes 3 yrs first baby Have you ever had any gynecological surgical procedures such as cervical conization, LEEP procedure, Laser treatment, cryosurgery of the cervix or dilation and curettage, etc? No Have you had any other surgical procedures? No Have you ever been hospitalized overnight for a non-surgical reason excluding normal delivery? No Have you ever had anesthesia complications? No Have you ever had an abnormal pap smear? No Do you have a history of abnormalties of the uterus? No Did your mother take EMORY or any other hormones when she was with you? No Did it take more than one year to become ? No Have you ever been evaluated or treated for infertility? No Is there a history of medical problems in your family which you feel might adversely affect your health or ? No Do you have any other problems we have not asked you about which you feel may be important for us to know for this ? No Do you currently have any of the following symptoms since your last menstrual period: Abdominal pain, blood in the stool or urine, chest pain, shortness of breath, coughing or vomiting up blood, your heart racing or skipping beats, nausea and/or vomiting, pain on urination, or vaginal discharge or vaginal bleeding? Yes N/V Genetic Screening/Teratology Counseling- Includes patient, baby's father, or anyone in either family with: Patient's age 35 years or older as of estimated date of delivery No Thalassemia (Cambodian, Nepali, Mediterranean, or background): MCV less than 80 No Neural tube defect (Meningomyelocele, Spina bifida, or Anencephaly) No Congenital heart defect No Down syndrome No Maurice-Sachs (Ashkenazi Mormon, Cajun, Upper Sorbian [place]) No Mercedes disease (Ashkenazi Mormon) No Familial dysautonomia (Ashkenazi Mormon) No Sickle cell disease or trait () No Hemophilia or other blood disorders No Muscular dystrophy No Cystic fibrosis No [place]'s chorea No Intellectual disability and/or autism No If yes, was the person tested for Fragile X? No Other inherited genetic or chromosomal disorder No Maternal metabolic disorder (eg. Type 1 diabetes, PKU) No Patient or baby's father had child with defects not listed above No Recurrent loss, or a stillbirth No Medications (including supplements, vitamins, herbs, or OTC drugs)/illicit/recreational drugs/alcohol since last menstrual period No If yes, agent(s) and strength/dosage: Any other No OB Infection History: Do you object to being tested for Hepatitis B? No Do you object to being tested for HIV? No Do you feel that you are at high risk for coming contact with the AIDS virus? No Have you ever been treated for tuberculosis? No Have you ever received the BCG vaccine? No Have you ever had a positive skin test for Tuberculosis? No Do you live with someone who has Tuberculosis? No Have you ever been exposed to Tuberculosis? No Do you have Genital Herpes? No Does your partner have Genital Herpes? No Have you had a rash or viral illness since your last period? No Have you ever had Gonorrhea, Chlamydia, Syphilis, Venereal Warts, Trichomoniasis, Pelvic Inflammatory Disease (PID) or any other sexually transmitted disease? No Do you know if you are a Group B Streptococcus Carrier? no Did you have the Chicken Pox/Varicella? unknown Were you vaccinated against Chicken Pox/Varicella? yes Have you had any other infectious diseases? No Levi Maza has been instructed on the following: random urine drug screening policy and an initial urine drug screen has been ordered., She has been counseled regarding avoiding hazards, litter boxes, smoking, drug and alcohol use during Levi Maza has also been informed of the squirrel worker provider recommendation for first trimester nuchal lucency testing to be performed during her . Levi Maza has also been made aware of the time sensitive nature for this testing to be completed. . The patient now has a gestational age of 11w2d. The patient would be due for this testing prior to 14 weeks gestation which would be on 03/07/25 Ethnicity Based Genetic Testing has been reviewed and the WEbook information sheet has been provided to the patient in their After Visit Summary. The patient was also advised that genetic testing may not be covered by all insurances. The patients states that they understand this information. The patient states that she has not had the genetic screening for Horizon 14 done in the past during a previous . . The patient has agreed that she does want genetic testing for Horizon 14 The following Labs have been ordered: Obstetric Panel, HIV with verbal Consent, Hepatitis C, Varicella titer, Urine Culture, UDS, Panorama with gender, and Horizon 14 panel She is aware that her insurance may or may not cover Panorama and/or Horizon 14 test and discussed [facility] only prakash for test(s) - info given today in her after visit summary . She would like to proceed with testing. For Horizon Carrier Screening, if patient has [place] [employer], [facility] or [employer] insurances: Not Applicable Electronically signed by: Keeley Alex RN 02/17/25 10:04 AM EDT Last Filed Vital Signs Vital Sign Reading Time Taken Comments Blood Pressure 122/78 02/17/2025 10:02 AM EDT Pulse 100 02/17/2025 10:02 AM EDT Temperature - - Respiratory Rate - - Oxygen Saturation - - Inhaled Oxygen Concentration - - Weight 66.2 kg (146 lb) 02/17/2025 10:02 AM EDT Height 154.9 cm (5' 1 ) 02/17/2025 10:02 AM EDT Body Mass Index 27.59 02/17/2025 10:02 AM EDT Plan of Treatment Upcoming Encounters Date Type Department Care Team (Late st Contact Info) Description 03/24/2025 3:00 PM EST Initial Obstetrics and Gynecology - [address] [phone] Quiana Osborne, [address] [address] 04/21/2025 1:00 PM EST Ancillary Procedure Maternal Medicine - [address] [phone] Health Maintenance Due Date Last Done Comments Hepatitis B Vaccines (1 of 3 - 19+ 3-dose series) 02/17/2011 HPV Vaccines (1 - 3-dose SCD M series) 02/17/2019 Social Influencers of Health Screening 04/21/2022 Depression Screening 05/19/2024 COVID-19 Vaccine (3 - 2024-2 6 season) 2025 03/12/2021, 02/12/2021 Influenza Vaccine (#1) 2025 04/02/2020 Cervical Cancer Screening: P ap Smear 01/02/2026 01/02/2023, 04/08/2019 DTaP,Tdap,and Td Vaccines (3 - Td or Tdap) 11/10/2030 11/10/2020, 12/11/2016 HIV Screening Completed 02/17/2025 Hepatitis C Screening Completed 02/17/2025 HIB Vaccines Aged Out No longer eligi ble based on patient's age to complete this topic Hepatitis A Vaccines Aged Out No long er eligible based on patient's age to complete this topic IPV Vaccines Aged Out No longer eligi ble based on patient's age to complete this topic Meningococcal ACWY Vaccine Aged Out N o longer eligible based on patient's age to complete this topic Meningococcal B Vaccine Aged Out No l onger eligible based on patient's age to complete this topic Pneumococcal Vaccine: Pediatrics (0 to 5 Years) and At-Risk Patients (6 to 49 Years) Aged Out No longer eligible b ased on patient's age to complete this topic RSV Immunization Adult Patients (No Doses Required) Completed RSV Immunization Patients Under 20 months Aged Out No longer eligible b ased on patient's age to complete this topic Procedures Procedure Name Priority Date/Time Associated Diagnosis Comments HORIZON 14, ERNESTO Routine 02/25/2025 11 :53 AM EDT US OB LESS 14 WKS SINGLE OR FIRST GESTATION Routine 02/24/2025 11:19 AM EDT Encounter for screening for malformations Encounter for nuchal translucency testing US OB LESS 14 WKS NUCHAL MEASUREMENT Routine 02/24/2025 11:19 AM EDT Encounter for screening for malformations Encounter for nuchal translucency testing PANORAMA TEST Routine 12:21 PM EDT CBC WITH AUTO DIFFERENTIAL Routine 02/17/2025 10:59 AM EDT Encounter for screening of mother HIV 1, 2 ANTIBODY, P24 ANTIGEN WITH REFLEX TO DIFFERENTIATION Routine 02/17/2025 10:59 AM EDT Encounter for screening of mother RUBELLA ANTIBODY IGG Routine 02/17/2025 10:59 AM EDT Encounter for screening of mother TREPONEMA PALLIDUM ANTIBODY WITH REFLEX TO RPR AND PARTICLE AGGLUTINATION Routine 02/17/2025 10:59 AM EDT Encounter for screening of mother TYPE AND SCREEN Routine 02/17/2025 10:59 AM EDT Encounter for screening of mother VENIPUNCTURE CHARGE Routine 02/17/2025 1 0:59 AM EDT Research requested ultrasound scan Encounter for routine screening for malformation using ultrasonics VARICELLA ZOSTER ANTIBODY IGG Routine 02/17/2025 10:59 AM EDT Encounter for screening of mother HEPATITIS B SURFACE ANTIGEN WITH CONFIRMATION Routine 02/17/2025 10:59 AM EDT Encounter for screening of mother CBC AND DIFFERENTIAL Routine 02/17/2025 10:59 AM EDT Encounter for screening of mother DRUG ABUSE SCREEN EXPANDED WITH REFLEX CONFIRMATION, URINE Routine 02/17/2025 10:59 AM EDT Encounter for screening of mother HEPATITIS C ANTIBODY Routine 02/17/2025 10:59 AM EDT Encounter for screening of mother CULTURE URINE Routine 02/17/2025 10:59 AM EDT Encounter for screening of mother POC , URINE DIAGNOSTIC Routine 02/07/2025 1:19 PM EDT Irregular periods PAP SMEAR Routine 01/02/2023 from Last 3 Months or Most Recently Relevant to Health Maintenance Results * Horizon 14 (02/25/2025 11:53 AM EDT) Blood Venous blood specimen / Unknown us [facility] BLOOD ORDERABLES Final Resu lt * US OB Less 14 Wks Nuchal Measurement (02/24/2025 11:19 AM EDT) Anatomical Region Laterality Modality Body Ultrasound 02/24/2025 11:0 2 AM EDT Narrative 02/24/2025 11:29 AM EDT OBSTETRICS REPORT (Signed Final 02/24/2025 11:29 am) PATIENT INFO: ID #: [id number] : [birth year] (35 yrs)(F) Name: LEVI MAZA Visit Date: 02/24/2025 11:02 am PERFORMED BY: Attending: Jackelyn Brewer MD Performed By: Ernesto Sanabria RDMS Referred By: Quiana Osborne [facility] Ref. Address: [address] [place] [address] Location: [facility] SERVICE(S) PROVIDED: US Nuchal Translucency 91370 US < 14 weeks Abdominal Ultrasound 15659 INDICATIONS: Encounter for screening for nuchal Z36.82 translucency Encounter for screening for Z36.3 malformations 12 weeks gestation of Z3A.12 TECHNIQUE/SCAN QUALITY: Technique: Transabdominal Scan Satisfactory Quality: OB HISTORY: : 3 Term: 2 Livin VITAL SIGNS: Weight (lb) Height BMI 146 5'1 27.58 EVALUATION: Number Of Fetuses: 1 Preg. Location: Intrauterine Cardiac Activity: Observed Presentation: Variable Placenta Location: Posterior Appearance: Grade 0 Cord Insertion: Visualized BIOMETRY: GESTATIONAL AGE: LMP: 12w 2d Date: 11/30/24 RUTH: 09/06/25 Best: 12w 2d Det. By: LMP (11/30/24) RUTH: 09/06/25 1ST TRIMESTER GENETIC SONOGRAM SCREENING: CRL: 66.87 mm G.Age: 13w 0d RUTH: 09/01/25 Nuc Trans: 1.77 mm STANDARD ANATOMY: Cranium: Normal appearance Choroid Plexus: Normal appearance Diaphragm: Normal appearance Stomach: Normal appearance Abdominal Wall: Normal appearance Cord Vessels: Normal 3-Vessel Cord Bladder: Normal appearance Spine: Normal appearance Upper Extremities: Seen Lower Extremities: Seen CERVIX UTERUS ADNEXA: Uterus Size(cm) 9.76 x 9.49 x 7.02 Uterus Vol(ml): 340.45 Myometrium homogeneous, no lesions identified. Right Ovary Size(cm) 2.68 x 1.92 x 2.08 Vol(ml): 5.6 Normal in size and appearance. It is found between the uterus and the pelvic sidewall. Left Ovary Size(cm) 2.14 x 1.85 x 1.2 Vol(ml): 2.49 Normal in size and appearance. It is found between the uterus and the pelvic sidewall. COMMENTS: Ms. Maza is being seen for first trimester screening for aneuploidy. - Her medical history is not contributory. - Her obstetrical history is significant for two term vaginal deliveries. - She had cell free DNA screening. Results were low-risk for all conditions assessed. - Ultrasound findings: The nuchal translucency measurement is < 95th% for the gestational age. - biometry is consistent with dates. Assessment of the anatomy is appropriate for the gestational age. There are no ultrasound findings to suggest aneuploidy. - Plan: 1. A anatomical survey and cervical length screening for risk of have been scheduled. - 2. The patient should be offered second trimester MSAFP only, to assess for risk of an open neural tube defect. Jackelyn Brewer MD Electronically Signed Final Report 02/24/2025 11:29 am Procedure Note Jackelyn Brewer MD - 02/24/2025 OBSTETRICS REPORT (Signed Final 02/24/2025 11:29 am) PATIENT INFO: ID #: [id number] : [birth year] (35 yrs)(F) Name: LEVI MAZA Visit Date: 02/24/2025 11:02 am PERFORMED BY: Attending: Jackelyn Brewer MD Performed By: Ernesto Sanabria [facility] Referred By: Quiana Osborne [facility] Ref. Address: [address] [place] [id number] Location: [facility] SERVICE(S) PROVIDED: US Nuchal Translucency 97487 US < 14 weeks Abdominal Ultrasound 32146 INDICATIONS: Encounter for screening for nuchal Z36.82 translucency Encounter for screening for Z36.3 malformations 12 weeks gestation of Z3A.12 TECHNIQUE/SCAN QUALITY: Technique: Transabdominal Scan Satisfactory Quality: OB HISTORY: : 3 Term: 2 Livin VITAL SIGNS: Weight (lb) Height BMI 146 5'1 27.58 EVALUATION: Number Of Fetuses: 1 Preg. Location: Intrauterine Cardiac Activity: Observed Presentation: Variable Placenta Location: Posterior Appearance: Grade 0 Cord Insertion: Visualized BIOMETRY: GESTATIONAL AGE: LMP: 12w 2d Date: 11/30/24 RUTH: 09/06/25 Best: 12w 2d Det. By: LMP (11/30/24) RUTH: 09/06/25 1ST TRIMESTER GENETIC SONOGRAM SCREENING: CRL: 66.87 mm G.Age: 13w 0d RUTH: 09/01/25 Nuc Trans: 1.77 mm STANDARD ANATOMY: Cranium: Normal appearance Choroid Plexus: Normal appearance Diaphragm: Normal appearance Stomach: Normal appearance Abdominal Wall: Normal appearance Cord Vessels: Normal 3-Vessel Cord Bladder: Normal appearance Spine: Normal appearance Upper Extremities: Seen Lower Extremities: Seen CERVIX UTERUS ADNEXA: Uterus Size(cm) 9.76 x 9.49 x 7.02 Uterus Vol(ml): 340.45 Myometrium homogeneous, no lesions identified. Right Ovary Size(cm) 2.68 x 1.92 x 2.08 Vol(ml): 5.6 Normal in size and appearance. It is found between the uterus and the pelvic sidewall. Left Ovary Size(cm) 2.14 x 1.85 x 1.2 Vol(ml): 2.49 Normal in size and appearance. It is found between the uterus and the pelvic sidewall. COMMENTS: Ms. Maza is being seen for first trimester screening for aneuploidy. - Her medical history is not contributory. - Her obstetrical history is significant for two term vaginal deliveries. - She had cell free DNA screening. Results were low-risk for all conditions assessed. - Ultrasound findings: The nuchal translucency measurement is < 95th% for the gestational age. - biometry is consistent with dates. Assessment of the anatomy is appropriate for the gestational age. There are no ultrasound findings to suggest aneuploidy. - Plan: 1. A anatomical survey and cervical length screening for risk of have been scheduled. - 2. The patient should be offered second trimester MSAFP only, to assess for risk of an open neural tube defect. Jackelyn Brewer MD Electronically Signed Final Report 02/24/2025 11:29 am us Quiana Osborne CNM IMG OB US PROCEDURES Final Resu lt * US OB Less 14 Wks Single or First Gestation (02/24/2025 11:19 AM EDT) Anatomical Region Laterality Modality Body Ultrasound 02/24/2025 11:0 2 AM EDT Narrative 02/24/2025 11:29 AM EDT OBSTETRICS REPORT (Signed Final 02/24/2025 11:29 am) PATIENT INFO: ID #: [id number] : [birth year] (35 yrs)(F) Name: LEVI MAZA Visit Date: 02/24/2025 11:02 am PERFORMED BY: Attending: Jackelyn Brewer MD Performed By: Ernesto Sanabria [facility] Referred By: Quiana Osborne [facility] Ref. Address: [address] [place] [id number] Location: [facility] SERVICE(S) PROVIDED: US Nuchal Translucency 42508 US < 14 weeks Abdominal Ultrasound 92512 INDICATIONS: Encounter for screening for nuchal Z36.82 translucency Encounter for screening for Z36.3 malformations 12 weeks gestation of Z3A.12 TECHNIQUE/SCAN QUALITY: Technique: Transabdominal Scan Satisfactory Quality: OB HISTORY: : 3 Term: 2 Livin VITAL SIGNS: Weight (lb) Height BMI 146 5'1 27.58 EVALUATION: Number Of Fetuses: 1 Preg. Location: Intrauterine Cardiac Activity: Observed Presentation: Variable Placenta Location: Posterior Appearance: Grade 0 Cord Insertion: Visualized BIOMETRY: GESTATIONAL AGE: LMP: 12w 2d Date: 11/30/24 RUTH: 09/06/25 Best: 12w 2d Det. By: LMP (11/30/24) RUTH: 09/06/25 1ST TRIMESTER GENETIC SONOGRAM SCREENING: CRL: 66.87 mm G.Age: 13w 0d RUTH: 09/01/25 Nuc Trans: 1.77 mm STANDARD ANATOMY: Cranium: Normal appearance Choroid Plexus: Normal appearance Diaphragm: Normal appearance Stomach: Normal appearance Abdominal Wall: Normal appearance Cord Vessels: Normal 3-Vessel Cord Bladder: Normal appearance Spine: Normal appearance Upper Extremities: Seen Lower Extremities: Seen CERVIX UTERUS ADNEXA: Uterus Size(cm) 9.76 x 9.49 x 7.02 Uterus Vol(ml): 340.45 Myometrium homogeneous, no lesions identified. Right Ovary Size(cm) 2.68 x 1.92 x 2.08 Vol(ml): 5.6 Normal in size and appearance. It is found between the uterus and the pelvic sidewall. Left Ovary Size(cm) 2.14 x 1.85 x 1.2 Vol(ml): 2.49 Normal in size and appearance. It is found between the uterus and the pelvic sidewall. COMMENTS: Ms. Maza is being seen for first trimester screening for aneuploidy. - Her medical history is not contributory. - Her obstetrical history is significant for two term vaginal deliveries. - She had cell free DNA screening. Results were low-risk for all conditions assessed. - Ultrasound findings: The nuchal translucency measurement is < 95th% for the gestational age. - biometry is consistent with dates. Assessment of the anatomy is appropriate for the gestational age. There are no ultrasound findings to suggest aneuploidy. - Plan: 1. A anatomical survey and cervical length screening for risk of have been scheduled. - 2. The patient should be offered second trimester MSAFP only, to assess for risk of an open neural tube defect. Jackelyn Brewer MD Electronically Signed Final Report 02/24/2025 11:29 am Procedure Note Jackelyn Brewer MD - 02/24/2025 OBSTETRICS REPORT (Signed Final 02/24/2025 11:29 am) PATIENT INFO: ID #: [id number] : [id number] (35 yrs)(F) Name: LEVI MAZA Visit Date: 02/24/2025 11:02 am PERFORMED BY: Attending: Jackelyn Brewer MD Performed By: Ernesto Sanabria RDDE Referred By: Quiana Osborne [facility] Ref. Address: [address] [place] [id number] Location: [facility] SERVICE(S) PROVIDED: US Nuchal Translucency 70903 US < 14 weeks Abdominal Ultrasound 30650 INDICATIONS: Encounter for screening for nuchal Z36.82 translucency Encounter for screening for Z36.3 malformations 12 weeks gestation of Z3A.12 TECHNIQUE/SCAN QUALITY: Technique: Transabdominal Scan Satisfactory Quality: OB HISTORY: : 3 Term: 2 Livin VITAL SIGNS: Weight (lb) Height BMI 146 5'1 27.58 EVALUATION: Number Of Fetuses: 1 Preg. Location: Intrauterine Cardiac Activity: Observed Presentation: Variable Placenta Location: Posterior Appearance: Grade 0 Cord Insertion: Visualized BIOMETRY: GESTATIONAL AGE: LMP: 12w 2d Date: 11/30/24 RUTH: 09/06/25 Best: 12w 2d Det. By: LMP (11/30/24) RUTH: 09/06/25 1ST TRIMESTER GENETIC SONOGRAM SCREENING: CRL: 66.87 mm G.Age: 13w 0d RUTH: 09/01/25 Nuc Trans: 1.77 mm STANDARD ANATOMY: Cranium: Normal appearance Choroid Plexus: Normal appearance Diaphragm: Normal appearance Stomach: Normal appearance Abdominal Wall: Normal appearance Cord Vessels: Normal 3-Vessel Cord Bladder: Normal appearance Spine: Normal appearance Upper Extremities: Seen Lower Extremities: Seen CERVIX UTERUS ADNEXA: Uterus Size(cm) 9.76 x 9.49 x 7.02 Uterus Vol(ml): 340.45 Myometrium homogeneous, no lesions identified. Right Ovary Size(cm) 2.68 x 1.92 x 2.08 Vol(ml): 5.6 Normal in size and appearance. It is found between the uterus and the pelvic sidewall. Left Ovary Size(cm) 2.14 x 1.85 x 1.2 Vol(ml): 2.49 Normal in size and appearance. It is found between the uterus and the pelvic sidewall. COMMENTS: Ms. Maza is being seen for first trimester screening for aneuploidy. - Her medical history is not contributory. - Her obstetrical history is significant for two term vaginal deliveries. - She had cell free DNA screening. Results were low-risk for all conditions assessed. - Ultrasound findings: The nuchal translucency measurement is < 95th% for the gestational age. - biometry is consistent with dates. Assessment of the anatomy is appropriate for the gestational age. There are no ultrasound findings to suggest aneuploidy. - Plan: 1. A anatomical survey and cervical length screening for risk of have been scheduled. - 2. The patient should be offered second trimester MSAFP only, to assess for risk of an open neural tube defect. Jackelyn Brewer MD Electronically Signed Final Report 02/24/2025 11:29 am Quiana Osborne CNM IMG OB US PROCEDURES Final Resu lt * Panorama test (02/23/2025 12:21 PM EDT) Blood Venous blood specimen / Unknown Quiana Osborne CNM LAB BLOOD ORDERABLES Final Resu lt * Hepatitis C antibody (02/17/2025 10:59 AM EDT) Hepatitis C Antibody Negative Negative LAB CHEMISTRY METHOD 02/17/2025 2:59 PM EDT [facility] Blood Venous blood specimen / Unknown Venipuncture / Unknown 02/17/2025 10:59 AM EDT 02/17/2025 10:59 AM EDT us Quiana Osborne [facility] BLOOD ORDERABLES Final Resu lt Performing Organization Address [facility]/ZIP Co de Phone Number [facility] [address] [place] [address], [place] [phone] * HIV 1,2 antibody, p24 antigen with reflex to differentiation (02/17/2025 10:59 AM EDT) HIV Combo AB/AG Negative Negative LAB CHEMISTRY METHOD 02/17/2025 3:00 PM EDT [facility] Blood Venous blood specimen / Unknown Venipuncture / Unknown 02/17/2025 10:59 AM EDT 02/17/2025 10:59 AM EDT Narrative [facility] - 02/17/2025 3:00 PM EDT This assay is a 4th generation assay allowing for earlier detection of HIV infection by detecting the presence of the HIV-1 p24 antigen as well as the traditional antibodies to HIV type 1 (including group O) and type 2. Use of a 4th generation assay is the current CDC recommendation for HIV screening. us Quiana Mellonz [facility] BLOOD ORDERABLES Final Resu lt Performing Organization Address [facility] Co de Phone Number [facility] [address] [place] [address], [place] [phone] * Hepatitis B surface antigen with reflex to confirmation (02/17/2025 10:59 AM EDT) Hepatitis B Surface Ag Negative Negative LAB CHEMISTRY METHOD 02/17/2025 2:31 PM EDT [facility] Blood Venous blood specimen / Unknown Venipuncture / Unknown 02/17/2025 10:59 AM EDT 02/17/2025 10:59 AM EDT Narrative [facility] - 02/17/2025 2:31 PM EDT Over the counter supplements containing high doses of biotin may interfere with this assay. If interference is suspected, patients shoud be retested after refraining from biotin supplements for 72 hours. Quiana RAGSDALE LAB BLOOD ORDERABLES Final Resu lt Performing Organization Address [facility]/ZIP Co de Phone Number [facility] [address] [place] [address], [place] [phone] * Treponema pallidum antibody with reflex to RPR and particle agglutination (02/17/2025 10:59 AM EDT) [facility] T. Pallidum Antibodies Negative Negative LAB CHEMISTRY METHOD 02/17/2025 4:52 PM EDT [facility] Blood Venous blood specimen / Unknown Venipuncture / Unknown 02/17/2025 10:59 AM EDT 02/17/2025 10:59 AM EDT Quiana Osborne [facility] BLOOD ORDERABLES Final Resu lt Performing Organization Address [facility] Co de Phone Number [facility] [address] [place] [address], [place] [phone] * Venipuncture charge (02/17/2025 10:59 AM EDT) [facility] Extra Tube Hold for add-ons. 02/17/2025 12:01 PM EDT [facility] Comment:Auto resulted. Blood Venous blood specimen / Unknown Venipuncture / Unknown 02/17/2025 10:59 AM EDT 02/17/2025 10:59 AM EDT Quiana Osborne [facility] BLOOD ORDERABLES Final Resu lt Performing Organization Address [facility]/ZIP Co de Phone Number [facility]) [place], * Drug abuse screen expanded with reflex confirmation, urine (02/17/2025 10:59 AM EDT) Amphetamine Screen, Ur Negative Negative LAB CHEMISTRY METHOD 02/17/2025 1:28 PM [facility] Comment:Certain OTC medicati ons containing ephedrine, phenylephrine, pseudoephedrine and phenylpropanolamine can cause false positive results. Barbiturate Screen, Ur Negative Negative LAB CHEMISTRY METHOD 02/17/2025 1:28 PM EDT [facility] Benzodiazepine Screen, Ur Negative Negative LAB CHEMISTRY METHOD 02/17[facility]2025 [facility] Cocaine Screen, Ur Negative Negative LAB CHEMISTRY METHOD 02/17/2025 1:28 PM [facility] Opiate Screen, Ur Negative Negative LAB CHEMISTRY METHOD 02/17/2025 1:28 PM [facility] Cannabinoid (THC) Screen, Ur Negative Negative LAB CHEMISTRY METHOD 02/17/2025 1:28 PM T [facility] Comment:Specimens from patie nts taking pantoprazole sodium (Protonix) have been shown to produce false positive results. Fentanyl, Ur Negative Negative LAB CHEMISTRY METHOD 02/17/2025 1:28 PM [facility] Oxycodone Screen, Ur Negative Negative LAB CHEMISTRY METHOD 02/17/2025 1:28 PM [facility] Urine Urine specimen obtained by clean catch procedure / Unknown Non-blood Collection / Unknown 02/17/2025 10:59 AM EDT 02/17/2025 10:59 AM EDT Narrative [facility] - 02/17/2025 1:28 PM EDT Assay cutoffs: Amphetamines 1000 ng/mL Barbiturates 200 ng/mL Benzodiazepines 200 ng/mL Cocaine 300 ng/mL Fentanyl 1 ng/mL Opiates 300 ng/mL Oxycodone 100 ng/mL THC 50 ng/mL Semi-quantitative assay for screening purposes only. Unconfirmed screening result should not be used for non-medical purposes. *POSITIVE RESULTS ARE AUTOMATICALLY SENT FOR ALTERNATE METHOD CONFIRMATION* us Qiuana RAGSDALE LAB URINE ORDERABLES Final Resu lt [facility] [address] [place] [address], [place] [phone] * (ABNORMAL) CBC auto differential (02/17/2025 10:59 AM EDT) WBC 14.2(H) 4.8 - 10.8 K/mcL LAB HEMETOLOGY METHOD 02/17/2025 12:20 PM EDT [facility] RBC 4.00 3.80 - 4.80 M/mcL LAB HEMETOLOGY METHOD 02/17/2025 12:20 PM EDT [facility] Hemoglobin 11.8 11.5 - 16.0 g/dL LAB HEMETOLOGY METHOD 02/17/2025 12:20 PM EDT [facility] Hematocrit 35.9 35.0 - 47.0 % LAB HEMETOLOGY METHOD 02/17/2025 12:20 PM EDT [facility] MCV 90.2 79.0 - 98.0 FL LAB HEMETOLOGY METHOD 02/17/2025 12:20 PM EDT [facility] MCH 29.6 27.0 - 32.0 pcg LAB HEMETOLOGY METHOD 02/17/2025 12:20 PM EDT [facility] MCHC 32.9 32.0 - 37.0 g/dL LAB HEMETOLOGY METHOD 02/17/2025 12:20 PM EDT [facility] RDW 12.5 11.0 - 15.0 % LAB HEMETOLOGY METHOD 02/17/2025 12:20 PM EDT [facility] Platelets 396 130 - 400 K/mcL LAB HEMETOLOGY METHOD 02/17/2025 12:20 PM EDT [facility] MPV 10.0 7.0 - 11.0 FL LAB HEMETOLOGY METHOD 02/17/2025 12:[facility] NRBC 0.0 <1.0 % LAB HEMETOLOGY METHOD 02/17/2025 12:20 PM [facility] NRBC Absolute 0.00 <0.10 K/mcL LAB HEMETOLOGY METHOD 02/17/2025 12:20 PM [facility] Neutrophils Relative 81.3 % LAB HEMETOLOGY METHOD 02/17/2025 12:20 PM [facility] Lymphocytes Relative 12.0 % LAB HEMETOLOGY METHOD 02/17/2025 12:20 PM [facility] Monocytes Relative 4.3 % LAB HEMETOLOGY METHOD 02/17/2025 12:20 PM [facility] Eosinophils Relative 0.5 % LAB HEMETOLOGY METHOD 02/17/2025 12:20 PM [facility] Basophils Relative 0.4 % LAB HEMETOLOGY METHOD 02/17/2025 12:20 PM [facility] Immature Granulocytes Relative 1.5 % LAB HEMETOLOGY METHOD 02/17/2025 12:20 PM [facility] Neutrophils Absolute 11.57(H) 1.50 - 7.00 K/mcL LAB HEMETOLOGY METHOD 02/17/2025 12:20 PM [facility] Lymphocytes Absolute 1.70 1.00 - 5.00 K/mcL LAB HEMETOLOGY METHOD 02/17/2025 12:20 PM [facility] Monocytes Absolute 0.61 0.20 - 1.00 K/mcL LAB HEMETOLOGY METHOD 02/17/2025 12:20 PM [facility] Eosinophils Absolute 0.07 0.00 - 0.50 K/mcL LAB HEMETOLOGY METHOD 02/17/2025 12:20 PM [facility] Basophils Absolute 0.05 0.00 - 0.20 K/[facility] LAB HEMETOLOGY METHOD 02/17/2025 12:20 PM EDT [facility] Immature Granulocytes Absolute 0.21(H) 0.00 - 0.03 K/[facility] LAB HEMETOLOGY METHOD 02/17/2025 12:20 PM EDT [facility] Blood Venous blood specimen / Unknown Venipuncture / Unknown 02/17/2025 10:59 AM EDT 02/17/2025 10:59 AM EDT Quiana Osborne [facility] BLOOD ORDERABLES Final Resu lt Performing Organization Address [facility]/ZIP Co de Phone Number [facility] [address] [place] [address], [place] [phone] * (ABNORMAL) Rubella antibody IgG (02/17/2025 10:59 AM EDT) Rubella IgG Quant 9.6(L) >=10.0 I Unit/mL LAB CHEMISTRY METHOD 02/17/2025 3:17 PM EDT [facility] Rubella IgG Antibody Interp Equivocal (A) Positive LAB CHEMISTRY METHOD 02/17/2025 3:17 PM EDT [facility] Blood Venous blood specimen / Unknown Venipuncture / Unknown 02/17/2025 10:59 AM EDT 02/17/2025 10:59 AM EDT Quiana Osborne [facility] BLOOD ORDERABLES Final Resu lt Performing Organization Address City/[facility]/ZIP Co de Phone Number [facility] [address] [place] [address], [place] [phone] * Type and screen (02/17/2025 10:59 AM EDT) ABO Group O 02/17/2025 1:08 PM EDT [facility] Rh Type Positive 02/17/2025 1:08 PM EDT [facility] Antibody Screen Negative 02/17/2025 1:08 PM EDT [facility] Blood Venous blood specimen / Unknown Venipuncture / Unknown 02/17/2025 10:59 AM EDT 02/17/2025 10:59 AM EDT Quiana Osborne [facility] BLOOD BANK TEST ORDERABLES Final Result Performing Organization Address City/[facility]/ZIP Co de Phone Number [facility] [address] [place] [address], [place] [phone] * Culture urine (02/17/2025 10:59 AM EDT) Culture, Urine 10,000-49,000 CFU/mL Mixed urogenital emily, no uropathogens present. Suggest repeat specimen if clinically indicated. 2025 12:14 PM EDT [facility] Urine Urine specimen obtained by clean catch procedure / Unknown Non-blood Collection / Unknown 02/17/2025 10:59 AM EDT 02/17/2025 10:59 AM EDT us Quiana RAGSDALE LAB MICROBIOLOGY - GENERAL ORDE RABLES Final Result Performing Organization Address City/[facility]/ZIP Co de Phone Number [facility] [address] [place] [address], [place] [phone] * Varicella zoster antibody IgG (02/17/2025 10:59 AM EDT) Varicella IgG Positive Positive LAB CHEMISTRY METHOD 02/17/2025 2:30 PM EDT [facility] Varicella Zoster IgG 3.38 >=1.00 S/CO LAB CHEMISTRY METHOD 02/17/2025 2:30 PM EDT [facility] Blood Venous blood specimen / Unknown Venipuncture / Unknown 02/17/2025 10:59 AM EDT 02/17/2025 10:59 AM EDT [facility]ative [facility] - 02/17/2025 2:30 PM EDT Interpretation >= 1.00 S/CO is considered to be consistent with Immunity Quiana RAGSDALE LAB BLOOD ORDERABLES Final Resu lt [facility] [address] [place] [address], [place] [phone] * (ABNORMAL) POC , urine manually resulted (02/07/2025 1:19 PM EDT) HCG, Ur POC Positive Negative POC hCG Int QC Pass? Yes Yes Urine Urine specimen obtained by clean catch procedure / Unknown 02/07/2025 1:19 PM EDT Quiana RAGSDALE POINT OF CARE TEST ENTER/EDIT O RDERABLES Final Result * Pap smear (01/02/2023) 01/02/2023 Narrative HISTORICAL TESTING LAB RESULTING AGENCY - 01/13/2023 11:20 AM EDT [id number] THINPREP PAP, IMAGED: NEGATIVE FOR SQUAMOUS INTRAEPITHELIAL LESION AND MALIGNANCY . FUNGAL ORGANISMS MORPHOLOGICALLY CONSISTENT WITH NASRA SPP. GABY SEAMAN(ASCP) (CASE ELECTRONICALLY SIGNED 01 13 2023) RESULT OF APTIMA HIGH RISK HPV ASSAY: HIGH RISK HPV: NEGATIVE (SEROTYPES 16,18,31,33,35,39,45,51,52,56,58,59,66,68) COMPLETED ON 2023-01-06 ADEQUACY: SATISFACTORY ENDOCERVICAL/TRANSFORMATION ZONE COMPONENT PRESENT. SOURCE: THINPREP PAP HPV ANY DX: REFLEX 16 AND 18, CERVICAL, IMAGED CLINICAL INFORMATION: HPV ANY DIAGNOSIS. HORMONES, PAP HX NEGATIVE, LMP 12/30/22, [Z01.419] us Quiana Mellonz CN LAB CYTOLOGY ORDERABLES Final R esult HISTORICAL TESTING LAB RESULTING AGENCY from Last 3 Months or Most Recently Relevant to Health Maintenance Insurance [employer] Care Teams Workforce Management Consultant Relationship Specialty Start Date End Date Gayle Ge MD [address] [facility] [place] [address] PCP - General 01/02/23
--- NOTE | 2025-03-14 18:09 | PC.NURSE ---
MRI screening form completed and faxed.
--- NOTE | 2025-03-14 18:33 | PHA.MEDREC ---
Addendum entered by Sukhjinder Montano PharmD 03/14/25 18:40: reviewed Original Note: Pharmacy Consult ? Medication Reconciliation Pharmacy has completed the medication reconciliation. Patient confirmed her medications.
[2025-03-14 18:48] VITALS: BP 119/71; PULSE 117; RESP 21; TEMP 37.3; O2SAT 97
[2025-03-14 20:50] VITALS: BP 121/64; PULSE 117; RESP 14; O2SAT 97
[2025-03-14 22:02] VITALS: BP 102/50; PULSE 122; RESP 20; TEMP 38.5; O2SAT 99
[2025-03-15 00:22] VITALS: BP 105/60; PULSE 122; RESP 16; TEMP 37.1; O2SAT 99
[2025-03-15 02:51] VITALS: BP 111/62; PULSE 114; RESP 21; TEMP 37.1; O2SAT 99
[2025-03-15 03:07] VITALS: BP 111/62; PULSE 114; RESP 21; TEMP 37.1; O2SAT 99
[2025-03-15 04:16] LABS: Bacterial Vaginosis PCR NEGATIVE (Negative); Candida Group PCR DETECTED (Not Detect); Candida glab krusei PCR NOT DETECTED (Not Detect); Trichomonas vaginalis PCR NOT DETECTED (Not Detect)
[2025-03-15 04:47] LABS: CT PCR NOT DETECTED (Not Detect.); NG PCR NOT DETECTED (Not Detect.)
== END 2025-03-15 03:08 | disposition short-term general hospital (02) ==
PROVIDERS: Emergency Medicine; Obstetrics & Gynecology; Physician Assistant Medical; Emergency Provider Student in an Organized Health Care Education/Training Program
DX: O26.892 Other specified pregnancy related conditions, second trimester (principal); Z3A.14 14 weeks gestation of pregnancy; N12 Tubulo-interstitial nephritis, not specified as acute or chronic; N13.30 Unspecified hydronephrosis; R10.813 Right lower quadrant abdominal tenderness; D72.829 Elevated white blood cell count, unspecified; R10.9 Unspecified abdominal pain; R11.2 Nausea with vomiting, unspecified; R82.998 Other abnormal findings in urine; R31.9 Hematuria, unspecified
CPT/HCPCS: 36415; 72195; 74181; 76705; 76775; 76815; 80053; 81001; 81003; 81515; 83605; 83735; 84702; 85025; 87040; 87086; 87491; 87591; 96361; 96365; 96366; 96375; 96376; 99285; J0131; J0696; J1200; J2765

== ENCOUNTER → 2025-03-14 13:40 | Outpatient (BNV) | payer OTHER, SELFPAY | PROVIDERS: Emergency Provider Student in an Organized Health Care Education/Training Program; Visit Provider Surgery | DX: R10.9 Unspecified abdominal pain (principal) | CPT/HCPCS: 99283 ==

== ENCOUNTER → 2025-03-14 13:40 | Outpatient (BNV) | payer OTHER, SELFPAY | PROVIDERS: Emergency Provider Student in an Organized Health Care Education/Training Program; Visit Provider Obstetrics & Gynecology | DX: N12 Tubulo-interstitial nephritis, not specified as acute or chronic (principal); N13.30 Unspecified hydronephrosis; R10.813 Right lower quadrant abdominal tenderness | CPT/HCPCS: 99283 ==